=== PATIENT | female | born 1945 | race Caucasian/White ===

== ENCOUNTER 2017-09-19 09:46 | Emergency (ER) | payer MEDICARE ==
[2017-09-19 10:12] LABS: BASOPHIL % 0.7 % (0.0-0.4); Basophil (Absolute #) 0.05 (0-0.4); Eosinophil % 2.4 % (0.00-5.0); Eosinophil (Absolute #) 0.18 (0-0.5); Granulocyte Absolute (ANC) 4.64 (1.4-6.9); Granulocytes % 61.9 % (36.0-66.0); Hematocrit 39.7 % (35-47); Lymphocyte (Absolute #) 1.88 (1.0-4.6); Lymphocytes % 25.1 % (24.0-44.0); Mean Corpuscular Hemoglobin 28.8 pg (26-32); Mean Corpuscular Hgb Concent. 32.7 g/dl (32-36); Mean Platelet Volume 9.6 fl (6-9.5); Monocyte (Absolute #) 0.74 (0.0-1.3); Monocytes % 9.9 % (0.0-12.0); Platelet Count 299 K/mm3 (150-450); Red Blood Count 4.51 M/mm3 (4.1-5.4); Red Cell Distribution Width 14.2 % (11.5-14.0); White Blood Count 7.5 K/mm3 (4.0-10.5)
--- NOTE | 2017-09-19 10:12 | ERPHSYRPT ---
- History of Present Illness Time Seen by Provider: 09/19/17 09:50 Historian: patient Exam Limitations: no limitations Patient Subjective Stated Complaint: pt reports left sided chest pain beginning katarina [id number] this am-denies sob or diaphoresis-states that she thought it might be heart burn but that the pain was different-states that pain began radiaitng to left shoulder and back to chest-states that pain is better at this time Triage Nursing Assessment: pt pale warm and dry upon [id number] easy and nonlabored-no retractions noted-right radial pulse regular and strong Physician History: Pt started c/o mid sternal chest pain, "heartburn" lasting about 5 minutes at 7 AM today, radiating to her left chest. She denies other complaints, nausea, vomiting, cough, SOB, diaphoresis, radiating pain or other complaints. She took her regular Prilosec today, no other medicines for the pain, it has resolved, and did not return. She denies smoking, no history or medical problems, except stress, and GERD, her mother of a heart attack when she was 60 years old. Timing/Duration: hour(s) (3), resolved prior to arrival, sudden Activities at Onset: rest Quality: burning Location: substernal Severity of Pain-Max: severe Severity of Pain-Current: none Modifying Factors: Improves With: nothing Associated Symptoms: denies symptoms Prior Chest Pain/Cardiac Workup: no prior chest pain Nitro Today/Relief: no nitro taken today Aspirin Treatment Today: no aspirin today Allergies/Adverse Reactions: No Known Drug Allergies Allergy (Verified 09/19/17 09:58) Home Medications: Omeprazole [Prilosec] 20 mg PO DAILY 02/05/12 [History] Citalopram Hydrobromide [Celexa] 40 mg PO DAILY 09/19/17 [History] Hx Tetanus, Diphtheria Vaccination/Date Given: Yes Hx Influenza Vaccination/Date Given: No Hx Pneumococcal Vaccination/Date Given: No Immunizations Up to Date: Yes - Review of Systems Constitutional: No Symptoms Cardiac: Chest Pain All Other Systems: Reviewed and Negative - Past Medical History Pertinent Past Medical History: Yes Cardiac History: No Pertinent History Respiratory History: No Pertinent History GI Medical History: GERD Psycho-Social History: Anxiety - Past Surgical History Past Surgical History: Yes Gastrointestinal: Cholecystectomy Musculoskeletal: Orthopedic Surgery Female Surgical History: Other Other Surgical History: PARTIAL HYSTER - Social History Smoking Status: Never smoker Exposure to second hand smoke: No Drug Use: none Patient Lives Alone: No - Female History Hx Now: No - Nursing Vital Signs Nursing Vital Signs: Initial Vital Signs Temperature 98.4 F 09/19/17 09:56 Pulse Rate 80 09/19/17 09:56 Respiratory Rate 18 09/19/17 09:56 Blood Pressure 144/77 09/19/17 09:56 O2 Sat by Pulse Oximetry 96 09/19/17 09:56 Pain Scale Pain Intensity 0 - Physical Exam General Appearance: no apparent distress Eye Exam: eyes nml inspection Ears, Nose, Throat Exam: normal ENT inspection, pharynx normal Neck Exam: normal inspection, non-tender, supple Respiratory Exam: normal breath sounds, lungs clear, airway intact, No chest tenderness Cardiovascular Exam: regular rate/rhythm, normal heart sounds, normal peripheral pulses, No murmur Gastrointestinal/Abdomen Exam: soft, normal bowel sounds, No tenderness, No distention, No mass Back Exam: normal inspection, No CVA tenderness Extremity Exam: normal inspection, No calf tenderness, No to's sign, No pedal edema Neurologic Exam: alert, oriented x 3, normal mood/affect Skin Exam: normal color, warm, dry, No rash Lymphatic Exam: No adenopathy SpO2 Interpretation: normal SpO2: 96 Oxygen Delivery: Room Air - Course Nursing assessment & vital signs reviewed: Yes EKG Interpreted by Me: RATE (84/min), NORMAL AXIS, NORMAL INTERVALS, NORMAL ST-T , Other (repeat Ek:48 PM; unchanged) Ordered Tests: Active Orders 24 hr Category Date Time Status Vb Developer STAT Care 09/19/17 10:06 Active EKG-ER Only STAT Care 09/19/17 10:06 Active EKG-ER Only STAT Care 09/19/17 11:48 Active IV Insertion STAT Care 09/19/17 10:06 Active Oxygen-ED Only NASAL CANNULA 2 lpm Care 09/19/17 10:06 Active Pulse Oximetry (ED) STAT Care 09/19/17 10:06 Active CHEST 1 VIEW (PORTABLE) Stat Exams 09/19/17 10:06 Completed CBC W DIFF Stat Lab 09/19/17 10:00 Completed CK-Creatinine Phosphokinase Stat Lab 09/19/17 10:00 Completed CMP Stat Lab 09/19/17 10:00 Completed D-DIMER QUANTITATION Stat Lab 09/19/17 10:00 Completed NT PRO BNP Stat Lab 09/19/17 10:00 Completed TROPONIN Q3H Lab 09/19/17 10:00 Completed TROPONIN Q3H Lab 09/19/17 12:37 Completed TROPONIN Q3H Lab 09/19/17 16:15 Ordered TROPONIN Q3H Lab 09/19/17 19:15 Ordered TROPONIN Q3H Lab 09/19/17 22:15 Ordered Lab/Rad Data: Laboratory Result Diagrams 09/19/17 10:00 09/19/17 10:00 Laboratory Results 09/19/17 09/19/17 09/19/17 Range/Units 12:37 10:00 10:00 WBC (4.0-10.5) K/mm3 RBC (4.1-5.4) M/mm3 Hgb (12.0-16.0) gm/dl Hct (35-47) % MCV (78-100) fl MCH (26-32) pg MCHC (32-36) g/dl RDW (11.5-14.0) % Plt Count (150-450) K/mm3 MPV (6-9.5) fl Gran % (36.0-66.0) % Eos # (Auto) (0-0.5) Absolute Lymphs (auto) (1.0-4.6) Absolute Monos (auto) (0.0-1.3) Lymphocytes % (24.0-44.0) % Monocytes % (0.0-12.0) % Eosinophils % (0.00-5.0) % Basophils % (0.0-0.4) % Absolute Granulocytes (1.4-6.9) Basophils # (0-0.4) D-Dimer 365 (215-500) ng/mL Sodium (137-145) mmol/L Potassium (3.5-5.1) mmol/L Chloride (98-107) mmol/L Carbon Dioxide (22-30) mmol/L Anion Gap (5-15) MEQ/L BUN (7-17) mg/dL Creatinine (0.52-1.04) mg/dL Estimated GFR ML/MIN Glucose (74-106) mg/dL Calcium (8.4-10.2) mg/dL Total Bilirubin (0.2-1.3) mg/dL AST (14-36) U/L ALT (0-35) U/L Alkaline Phosphatase (38-126) U/L Creatine Kinase (30-135) U/L Troponin I < 0.012 < 0.012 (0.000-0.034) ng/mL NT-Pro-B Natriuret Pep (0-900) pg/mL Serum Total Protein (6.3-8.2) g/dL Albumin (3.5-5.0) g/dL 09/19/17 09/19/17 Range/Units 10:00 10:00 WBC 7.5 (4.0-10.5) K/mm3 RBC 4.51 (4.1-5.4) M/mm3 Hgb 13.0 (12.0-16.0) gm/dl Hct 39.7 (35-47) % MCV 88.0 (78-100) fl MCH 28.8 (26-32) pg MCHC 32.7 (32-36) g/dl RDW 14.2 H (11.5-14.0) % Plt Count 299 (150-450) K/mm3 MPV 9.6 H (6-9.5) fl Gran % 61.9 (36.0-66.0) % Eos # (Auto) 0.18 (0-0.5) Absolute Lymphs (auto) 1.88 (1.0-4.6) Absolute Monos (auto) 0.74 (0.0-1.3) Lymphocytes % 25.1 (24.0-44.0) % Monocytes % 9.9 (0.0-12.0) % Eosinophils % 2.4 (0.00-5.0) % Basophils % 0.7 (0.0-0.4) % Absolute Granulocytes 4.64 (1.4-6.9) Basophils # 0.05 (0-0.4) D-Dimer (215-500) ng/mL Sodium 143 (137-145) mmol/L Potassium 3.7 (3.5-5.1) mmol/L Chloride 108 H (98-107) mmol/L Carbon Dioxide 24 (22-30) mmol/L Anion Gap 14.6 (5-15) MEQ/L BUN 13 (7-17) mg/dL Creatinine 0.75 (0.52-1.04) mg/dL Estimated GFR > 60.0 ML/MIN Glucose 105 (74-106) mg/dL Calcium 9.1 (8.4-10.2) mg/dL Total Bilirubin 0.40 (0.2-1.3) mg/dL AST 25 (14-36) U/L ALT 23 (0-35) U/L Alkaline Phosphatase 69 (38-126) U/L Creatine Kinase 224 H (30-135) U/L Troponin I (0.000-0.034) ng/mL NT-Pro-B Natriuret Pep 183 (0-900) pg/mL Serum Total Protein 7.4 (6.3-8.2) g/dL Albumin 4.2 (3.5-5.0) g/dL - Progress Progress: improved Air Movement: good Progress Note: 09/19/17 14:03 Pt remains pain free, stable, denies any complaints, no nausea, dizziness, shortness of breath, other complaints. She wants to go home and follow up with her physician. Counseled pt/family regarding: lab results, diagnosis, need for follow-up, rad results - Departure Time of Disposition: 14:05 Departure Disposition: Home Clinical Impression: Chest pain Qualifiers: Chest pain type: unspecified Qualified Code(s): R07.9 - Chest pain, unspecified Condition: Stable Critical Care Time: No Referrals: EDOUARD MINA [Primary Care Provider] - Instructions: Atypical Chest Pain Additional Instructions: Follow up with your physician as scheduled next week, return if severe pain, shortness of breath, vomiting, dizziness!
[2017-09-19 10:27] LABS: ALBUMIN 4.2 g/dL (3.5-5.0); ALKALINE PHOSPHATASE 69 U/L (38-126); ANION GAP 14.6 MEQ/L (5-15); BLOOD UREA NITROGEN 13 mg/dL (7-17); CHLORIDE 108 mmol/L (98-107); CK-Creatinine Phosphokinase 224 U/L (30-135); Calcium 9.1 mg/dL (8.4-10.2); Carbon Dioxide 24 mmol/L (22-30); Creatinine 1 0.75 mg/dL (0.52-1.04); Glucose 105 mg/dL (74-106); Potassium 3.7 mmol/L (3.5-5.1); SGOT/AST 25 U/L (14-36); SGPT/ALT 23 U/L (0-35); SODIUM 143 mmol/L (137-145); Total Protein 7.4 g/dL (6.3-8.2)
--- NOTE | 2017-09-19 10:31 | XRAY ---
Indication: Chest pain. Comparison: February 05, 2012. Single PA chest less inflated today and remains clear. Heart and mediastinal structures within normal limits. Bony thorax intact again with minimal degenerative changes. Impression: Nonacute chest.
[2017-09-19 10:36] LABS: NT PRO BNP 183 pg/mL (0-900)
[2017-09-19 13:52] VITALS: BP 148/89; PULSE 72
[2017-09-19 14:07] VITALS: O2SAT 96
== END 2017-09-19 14:10 | disposition home or self-care (01) ==
LOC: ED 09:46
DX: R07.9 Chest pain, unspecified (principal); Z79.899 Other long term (current) drug therapy
CPT/HCPCS: 36000; 36415; 71045; 80053; 82550; 83880; 84484; 85025; 85379; 93005; 93041; 99284

== ENCOUNTER 2019-11-25 07:29 | Day surgery (SDC) | payer MEDICARE ==
[~2019-11-25 07:29] MED LIST: Ak-Dilate OPHTHALMIC*** 1.065 ML, Cyclogyl 1% OPHTH SOL 5 ML 1.065 ML, GATIFLOXACIN 0.5... OP ONE; Lactated Ringers 1,000 ML IV SCH; NON-FORMULARY ITEM IJ ONE; TETRACAINE 0.5% STERI-UNIT SOL OP ONE; cefUROXime sodium 0.005 GM in Sodium Chloride Flush 30 ML*** 0.5 ML IJ SCH
[2019-11-25] MEDS ORDERED: PROVAYBLUE IV ONE (07:30)
[2019-11-25] MEDS ORDERED: Lactated Ringers 1,000 ML IV ONE (07:36)
[2019-11-25] MEDS ORDERED: Zofran 4 MG/2 ML VIAL IV PRN (09:00)
[2019-11-25] MEDS ORDERED: ACETAZOLAMIDE 250 MG TABLET PO ONE (09:00)
[2019-11-25] MEDS: TETRACAINE 0.5% STERI-UNIT SOL OP ONE ×2 (09:41→10:16)
[2019-11-25] MEDS ORDERED: LIDOCAINE HCL 1% AMPUL 5 ML IJ ONE (10:00)
[2019-11-25] MEDS ORDERED: BETADINE 5% OPHTHALMIC 30 ML OP ONE (10:00)
[2019-11-25] MEDS ORDERED: Epinephrine Preservative Free 1 MG/ML IJ ONE (10:00)
[2019-11-25] MEDS ORDERED: DIPRIVAN 200 MG/20 ML IV ONE (10:40)
[2019-11-25 11:46] VITALS: BP 140/58; PULSE 77; O2SAT 99
--- NOTE | 2019-11-26 08:52 | OP ---
DATE/TIME OF OPERATION: 11/25/2019 1040 TIME DICTATED: 1256 PREOPERATIVE DIAGNOSIS: Senile cataract of right eye. POSTOPERATIVE DIAGNOSIS: Senile cataract of right eye. SURGEON: Christ Tong MD YOUTH CORRECTIONS OFFICER: None. OPERATION: Cataract extraction of right eye with an intraocular lens implant. STANDARD COMPLEX___X___ ANESTHESIA: MAC. ___X___ Monitored anesthesia care in combination with topical and intra-cameral anesthesia (because of the established specific risk of reflux, arrhythmias, or an anxiety attack associated with ocular manipulation as well as difficulty of the pc maintenance technician to manage such potentially catastrophic events while simultaneously attempting to complete the surgical procedure, it was deemed necessary for the patient's safety to have an anesthesiologist or a nurse stacking machine operator present during the procedure whenever possible. The anesthesiologist or the nurse stacking machine operator was utilized to monitor and regulate the intravenous sedation of the patient, so the patient was cooperative, relaxed, and comfortable). Topical anesthesia using Tetracaine eye drops together with intra cameral anesthesia using Lidocaine 1% MPF. The nurse was utilized to monitor the patient. ANESTHESIA PROVIDER: Chilo Nuno CRNA. COMPLICATIONS: None. BLOOD LOSS: None. INDICATIONS: The patient is undergoing cataract surgery in the hopes of eliminating the visual complaints and difficulty. PROCEDURE: After arriving at the facility's outpatient surgery area, an IV was started; the patient was given 5 mg of p.o. Versed. (If an anesthesia provider was not monitoring the patient) The patient was then given topical anesthetic Tetracaine eye drops. A cotton pellet was soaked into a solution of a combination of Zymaxid 0.5%, Anhtony-Synephrine 2.5% and Ocufen (other drops might have been substituted referenced in the patient's record). The pellet was inserted by the RN into the lower conjunctival cul-de-sac with a sterile forceps and left for 20 minutes. The pellet was then removed by the RN with a sterile forceps before taking the patient to the operating room. The preoperative area nurse identified the patient and marked the correct eye to be operated on. I identified the correct eye to be operated on and marked it appropriately in the outpatient surgery area. The patient was then taken into the operating room. Tetracaine eye drops were installed again in the correct eye. The eyelids and the lashes and the lid margins were scrubbed with Betadine solution. One drop of the diluted Betadine solution was placed in the conjunctival cul-de-sac for 45 seconds and then was irrigated. A drop of Tetracaine Gel was placed in the conjunctival cul-de-sac. The patient's forehead was taped to secure it during the procedure. The patient was monitored. The patient was then draped in the usual way for this procedure. An eye speculum was used to separate the eyelids. The eye was then fixated and a temporal 2.5 mm incision was made in the clear cornea temporally at the limbus. Through the incision, 0.25 cc of 1% non-preserved lidocaine was injected into the anterior chamber for intracameral anesthesia. The anterior chamber was then filled with viscoelastic. The pupil was small. I felt that it would be safer to mechanically dilate the pupil. A Malyugin ring was used at this point which dilated the pupil. That was removed at the end of the procedure prior to aspiration of the viscoelastic from the anterior chamber and posterior to the intraocular lens implant. __X__ The cataract had a great amount of cortical changes. That rendered seeing the anterior capsule difficult for a safe performance of an anterior capsulotomy. I injected an air bubble into the anterior chamber. I then injected 1 ML of vision blue solution into the anterior chamber. The vision blue solution was irrigated from the anterior chamber after 30 seconds. The anterior capsule was stained which facilitated performing the anterior capsulotomy safely. After that was completed, a cystotome was introduced into the anterior chamber and a round anterior capsulotomy was performed. The capsule was removed by a forceps. Hydrodissection was next carried utilizing a 25-gauge cannula and balanced salt solution to delineate the cortical material from the capsule and the nucleus from the cortical material. The nucleus was rotated freely into the capsular bag with no difficulty. The phaco tip of the [employer] Phacoemulsifier was introduced into the anterior chamber and two grooves were made into the nucleus 90 degrees apart. Using two spatulas resulted into the nucleus being fractured into four quadrants. The phaco tip was then used to remove each quadrant of the nucleus. Viscoelastic was used during this process to protect the corneal endothelium. Once the entire nucleus was removed, the phaco tip then was removed and the irrigation tip was introduced into the eye and the cortex was removed. The posterior capsule was polished. It was noticed that there was a tear into the posterior capsule with few vitreous strands into the pupil plan. An anterior vitrectomy was performed. A 20.00 diopter, [id number], posterior chamber lens implant, was inspected and found to be grossly normal. The implant was inserted into the implant injector cartridge; Viscoelastic again was introduced into the anterior chamber, which filled the capsular bag. The implant injector's cartridge tip was placed at the limbal wound and the posterior chamber implant was released into the capsular bag and rotated appropriately. The implant was found to be into the capsular bag and it was centered. ___X__ 0.2 ml of Tri-Moxi was introduced via 27 gauge cannula into the vitreous cavity through the ciliary processes. Viscoelastic was aspirated from the anterior chamber and posterior to the intraocular lens implant from the capsular bag using the irrigating tip. The anterior chamber was irrigated and filled with 5 cc antibiotic solution (500 cc of BSS plus 2 ml of Fortaz 100 mg/ml) ( if patient was not allergic to the medication). The lips of the corneal incision were hydrated using BSS solution. The anterior chamber was checked and found to be water tight. One drop each of antibiotic, steroid and NSAID drops (refer to chart for drops used) were placed in the conjunctival cul-de-sac of the operated eye. Patient tolerated the procedure quite well and left the operating room in satisfactory condition. DISCHARGE SUMMARY: The patient was released in stable condition. The patient and those with the patient were given an instruction sheet as of how to care for the eye after surgery as well as counseling on any abnormal laboratory studies by the postoperative RN. The patient was also given an appointment card for follow-up in the office and is to call immediately for any difficulties including but not limited to pain in the eye, decreased vision, discharge from the eye, headache and or fever. DISCHARGE DIAGNOSIS: Pseudophakia of right eye.
== END 2019-11-25 12:00 | disposition home or self-care (01) ==
LOC: SDC 07:29
PROVIDERS: ATTEND Ophthalmology
DX: H25.811 Combined forms of age-related cataract, right eye (principal)
CPT/HCPCS: 66982; 99100; C1780; J0171; J2704; A9270-GY; Q9968

== ENCOUNTER 2020-07-07 19:53 | Emergency (ER) | payer MEDICARE ==
[2020-07-07] MEDS ORDERED: BABY ASPIRIN 81 MG CHEW PO ONE (20:28)
[2020-07-07] MEDS ORDERED: NITRO-BID 2% UD PACKETS TOP ONE (20:28)
--- NOTE | 2020-07-07 20:39 | ERPHSYRPT ---
- History of Present Illness Time Seen by Provider: 07/07/20 20:15 Historian: patient, EMS Exam Limitations: no limitations Patient Subjective Stated Complaint: 2-3 weeks ago, and itching/hurting in the chest but it got better. No chest pain today and I took my b/p and it was 218/116, so called ambulance Triage Nursing Assessment: pt arrived via ambulance, with htn. B/p 218/116. Pt denies any chest pain but states, "I feel funny, I feel off". Pt denies headache. Lungs clear, heart tones reg. No edema noted. Pt states, "I'm under alot of stress with my daughter who is 33 and she tries to keep my grandson away from me". Physician History: 75 years old female with a history of GERD presented in the ER with chief complaint of intermittent chest pain for the last few weeks and also having elevated blood pressure. Patient does not take any antihypertensive. Patient report she is having dull aching chest pain off and on, last for a few minutes and improved. Currently patient does not have any chest pain. She checked her blood pressure and it was 212 systolic which was consistently high on repeated checking. Currently patient blood pressure is 205 systolic. She denies any blurry vision, diplopia, numbness tingling or focal weakness. No abdominal pain nausea or vomiting. Does not have any cardiac work-up done in the past. Timing/Duration: week(s), intermittent, gradual onset Activities at Onset: rest Quality: dullness, fullness Location: substernal Chest Pain Radiation: no radiation Severity of Pain-Max: moderate Severity of Pain-Current: mild Modifying Factors: Improves With: nothing Associated Symptoms: shortness of breath Prior Chest Pain/Cardiac Workup: no prior cardiac workup Nitro Today/Relief: no nitro taken today Aspirin Treatment Today: 81 mg x 1 Allergies/Adverse Reactions: No Known Drug Allergies Allergy (Verified 07/07/20 19:55) Home Medications: Omeprazole [Prilosec] 40 mg PO DAILY 02/05/12 [History] Citalopram Hydrobromide [Celexa] 40 mg PO DAILY 09/19/17 [History] Aspirin 81 mg PO DAILY 11/20/19 [History] Hx Tetanus, Diphtheria Vaccination/Date Given: Yes Hx Influenza Vaccination/Date Given: No Hx Pneumococcal Vaccination/Date Given: No Immunizations Up to Date: Yes Travel Risk - International Travel Have you traveled outside of the country in past 3 weeks: No - Coronavirus Screening Are you exhibiting any of the following symptoms?: No Close contact with a COVID-19 positive Pt in past 14-21 Days: No - Vaccine Status Have you recieved a Covid-19 vaccination: No - Review of Systems Constitutional: No Symptoms Eyes: No Symptoms Ears, Nose, & Throat: No Symptoms Respiratory: Dyspnea Cardiac: Chest Pain Abdominal/Gastrointestinal: No Symptoms Genitourinary Symptoms: No Symptoms Musculoskeletal: No Symptoms Skin: No Symptoms Neurological: No Focal Weakness, No Gait Changes, No Headache, No Sensory Changes, No Speech Changes Psychological: No Symptoms Endocrine: No Symptoms Hematologic/Lymphatic: No Symptoms Immunological/Allergic: No Symptoms - Past Medical History Pertinent Past Medical History: Yes Neurological History: No Pertinent History ENT History: Cataracts Cardiac History: No Pertinent History Respiratory History: No Pertinent History Endocrine Medical History: No Pertinent History Musculoskeletal History: No Pertinent History GI Medical History: GERD, Gallbladder Disease History: No Pertinent History Psycho-Social History: Anxiety, Depression Female Reproductive Disorders: No Pertinent History - Past Surgical History Past Surgical History: Yes Neuro Surgical History: No Pertinent History Cardiac: No Pertinent History Respiratory: No Pertinent History Gastrointestinal: Cholecystectomy Genitourinary: No Pertinent History Musculoskeletal: Orthopedic Surgery Female Surgical History: Other Other Surgical History: PARTIAL HYSTER, rt wrist - Social History Smoking Status: Never smoker Exposure to second hand smoke: No Drug Use: none Patient Lives Alone: No - Female History Hx Now: No - Nursing Vital Signs Nursing Vital Signs: Initial Vital Signs Temperature 98.3 F 07/07/20 19:54 Pulse Rate 85 07/07/20 19:54 Respiratory Rate 20 07/07/20 19:54 Blood Pressure 210/118 07/07/20 19:54 O2 Sat by Pulse Oximetry 97 07/07/20 19:54 Pain Scale Pain Intensity 0 - Physical Exam General Appearance: no apparent distress, alert, anxiety Eye Exam: PERRL/EOMI, eyes nml inspection Ears, Nose, Throat Exam: normal ENT inspection, TMs normal, pharynx normal Neck Exam: normal inspection, non-tender, supple, full range of motion Respiratory Exam: normal breath sounds, lungs clear Cardiovascular Exam: regular rate/rhythm, normal heart sounds Gastrointestinal/Abdomen Exam: soft, normal bowel sounds Back Exam: normal inspection, normal range of motion Extremity Exam: normal inspection, normal range of motion Neurologic Exam: alert, oriented x 3, cooperative, retort firer II-XII nml as tested, normal mood/affect, nml cerebellar function, sensation nml, No motor deficits Skin Exam: normal color SpO2 Interpretation: normal SpO2: 97 O2 Delivery: Room Air - Course EKG Interpreted by Me: RATE (75), Sinus Rhythm, NORMAL AXIS, NORMAL QRS Ordered Tests: Active Orders 24 hr Category Date Time Status [employer] STAT Care 07/07/20 20:28 Active EKG-ER Only STAT Care 07/07/20 20:28 Active IV Insertion STAT Care 07/07/20 20:28 Active CHEST 1 VIEW (PORTABLE) Stat Exams 07/07/20 20:13 Taken CBC W DIFF Stat Lab 07/07/20 20:40 Completed CMP Stat Lab 07/07/20 20:40 Completed D-DIMER QUANTITATIVE Stat Lab 07/07/20 20:40 Completed NT PRO BNP Stat Lab 07/07/20 20:40 Completed TROPONIN Q3H Lab 07/07/20 20:40 Completed TROPONIN Q3H Lab 07/07/20 23:30 Ordered TROPONIN Q3H Lab 07/08/20 02:30 Ordered TROPONIN Q3H Lab 07/08/20 05:30 Ordered TROPONIN Q3H Lab 07/08/20 08:30 Ordered Transfer Order Routine Transfer 07/07/20 Ordered Medication Summary Discontinued Medications Generic Name Dose Route Start Last Admin Trade Name Freq PRN Reason Stop Dose Admin Aspirin 324 mg 07/07/20 20:28 07/07/20 20:44 Baby Aspirin 81 Mg Chew PO 07/07/20 20:29 324 mg STAT ONE Administration Nitroglycerin 1 gm 07/07/20 20:28 07/07/20 20:44 Nitro-Bid 2% Ud Packets TOP 07/07/20 20:29 1 gm STAT ONE Administration Nitroglycerin Confirm 07/07/20 20:43 Nitro-Bid 2% Ud Packets Administered 07/07/20 20:44 Dose 1 gm .ROUTE .STK-MED ONE Lab/Rad Data: Laboratory Result Diagrams 07/07/20 20:40 07/07/20 20:40 Laboratory Results 07/07/20 07/07/20 07/07/20 Range/Units 20:40 20:40 20:40 WBC (4.0-10.5) K/mm3 RBC (4.1-5.4) M/mm3 Hgb (12.0-16.0) gm/dl Hct (35-47) % MCV (78-100) fl MCH (26-32) pg MCHC (32-36) g/dl RDW (11.5-14.0) % Plt Count (150-450) K/mm3 MPV (7.5-11.0) fl Gran % (36.0-66.0) % Eos # (Auto) (0-0.5) Absolute Lymphs (auto) (1.0-4.6) Absolute Monos (auto) (0.0-1.3) Lymphocytes % (24.0-44.0) % Monocytes % (0.0-12.0) % Eosinophils % (0.00-5.0) % Basophils % (0.0-0.4) % Absolute Granulocytes (1.4-6.9) Basophils # (0-0.4) D-Dimer 385 (215-500) ng/mL Sodium 138 (137-145) mmol/L Potassium 4.0 (3.5-5.1) mmol/L Chloride 101 (98-107) mmol/L Carbon Dioxide 28 (22-30) mmol/L Anion Gap 12.7 (5-15) MEQ/L BUN 12 (7-17) mg/dL Creatinine 1.04 (0.52-1.04) mg/dL Estimated GFR 55.1 ML/MIN Glucose 115 H (74-106) mg/dL Calcium 9.3 (8.4-10.2) mg/dL Total Bilirubin 0.20 (0.2-1.3) mg/dL AST 24 (14-36) U/L ALT 20 (0-35) U/L Alkaline Phosphatase 62 (38-126) U/L Troponin I < 0.012 (0.000-0.034) ng/mL NT-Pro-B Natriuret Pep 231 (0-900) pg/mL Serum Total Protein 7.7 (6.3-8.2) g/dL Albumin 4.5 (3.5-5.0) g/dL 07/07/ Range/Units 20:40 WBC 7.6 (4.0-10.5) K/mm3 RBC 4.61 (4.1-5.4) M/mm3 Hgb 12.8 (12.0-16.0) gm/dl Hct 40.3 (35-47) % MCV 87.4 (78-100) fl MCH 27.8 (26-32) pg MCHC 31.8 L (32-36) g/dl RDW 14.0 (11.5-14.0) % Plt Count 274 (150-450) K/mm3 MPV 9.1 (7.5-11.0) fl Gran % 56.9 (36.0-66.0) % Eos # (Auto) 0.15 (0-0.5) Absolute Lymphs (auto) 2.30 (1.0-4.6) Absolute Monos (auto) 0.77 (0.0-1.3) Lymphocytes % 30.3 (24.0-44.0) % Monocytes % 10.1 (0.0-12.0) % Eosinophils % 2.0 (0.00-5.0) % Basophils % 0.7 (0.0-0.4) % Absolute Granulocytes 4.32 (1.4-6.9) Basophils # 0.05 (0-0.4) D-Dimer (215-500) ng/mL Sodium (137-145) mmol/L Potassium (3.5-5.1) mmol/L Chloride (98-107) mmol/L Carbon Dioxide (22-30) mmol/L Anion Gap (5-15) MEQ/L BUN (7-17) mg/dL Creatinine (0.52-1.04) mg/dL Estimated GFR ML/MIN Glucose (74-106) mg/dL Calcium (8.4-10.2) mg/dL Total Bilirubin (0.2-1.3) mg/dL AST (14-36) U/L ALT (0-35) U/L Alkaline Phosphatase (38-126) U/L Troponin I (0.000-0.034) ng/mL NT-Pro-B Natriuret Pep (0-900) pg/mL Serum Total Protein (6.3-8.2) g/dL Albumin (3.5-5.0) g/dL - Progress Progress: improved Air Movement: good Progress Note: 07/07/20 22:18 75 years old is evaluated for intermittent chest pain and uncontrolled blood pressure. Patient has not been taking any blood pressure medications regularly. EKG showed normal sinus rhythm with no acute ST elevations. Negative initial troponin and D-dimer. She is given aspirin and Nitropaste, on reevaluation her pain and blood pressure both are improved and currently systolic is in 140s. Chest x-ray negative for any acute cardiopulmonary findings. Patient intermittent chest pain with elevated pressure and no previous cardiac work-up, patient needs to be observed with trending of cardiac enzyme and further work-up. Discussed with Dr. Carlos and patient is admitted. Blood Culture(s) Obtained: No Antibiotics given: No Discussed with .: Rubia Will see patient in: hospital (observation) Counseled pt/family regarding: lab results, diagnosis, rad results - Departure Departure Disposition: Observation Clinical Impression: Chest pain, rule out acute myocardial infarction, Uncontrolled hypertension Condition: Stable Critical Care Time: No Referrals: EDOUARD MINA [Primary Care Provider] -
[2020-07-07] MEDS ORDERED: NITRO-BID 2% UD PACKETS ONE (20:43)
[2020-07-07 20:47] LABS: Absolute Neutrophil Ct (ANC) 4.32 (1.4-6.9); BASOPHIL % 0.7 % (0.0-0.4); Basophil (Absolute #) 0.05 (0-0.4); Eosinophil (Absolute #) 0.15 (0-0.5); Hematocrit 40.3 % (35-47); Hemoglobin 12.8 gm/dl (12.0-16.0); Lymphocytes % 30.3 % (24.0-44.0); Mean Cell Volume 87.4 fl (78-100); Mean Corpuscular Hemoglobin 27.8 pg (26-32); Mean Corpuscular Hgb Concent. 31.8 g/dl (32-36); Mean Platelet Volume 9.1 fl (7.5-11.0); Monocyte (Absolute #) 0.77 (0.0-1.3); Monocytes % 10.1 % (0.0-12.0); Neutrophil % 56.9 % (36.0-66.0); Platelet Count 274 K/mm3 (150-450); Red Blood Count 4.61 M/mm3 (4.1-5.4); White Blood Count 7.6 K/mm3 (4.0-10.5)
[2020-07-07 21:10] LABS: ALBUMIN 4.5 g/dL (3.5-5.0); ANION GAP 12.7 MEQ/L (5-15); BILIRUBIN,TOTAL 0.2 mg/dL (0.2-1.3); Calcium 9.3 mg/dL (8.4-10.2); Creatinine 1 1.04 mg/dL (0.52-1.04); EST GLOMERULAR FILTRATION RATE 55.1 ML/MIN; Total Protein 7.7 g/dL (6.3-8.2)
[2020-07-07 23:25] LABS: INFLUENZA A NEGATIVE (NEGATIVE); INFLUENZA B NEGATIVE (NEGATIVE); RESPIRATORY SYNCTIAL VIRUS NEGATIVE (Negative)
[2020-07-08 00:10] VITALS: BP 149/80; PULSE 78; O2SAT 97
--- NOTE | 2020-07-08 08:44 | XRAY ---
Indication: Chest pain. Hypertension. Comparison: September 19, 2017. Portable chest demonstrates normal heart and lungs with incidental interval enlarging large hiatal hernia. Bony thorax intact.
== END 2020-07-08 00:25 | disposition left against medical advice (07) ==
LOC: ED 19:53
DX: R07.9 Chest pain, unspecified (principal); I10 Essential (primary) hypertension
CPT/HCPCS: 0241U; 36000; 36415; 71045; 80053; 83880; 84484; 85025; 85379; 93005; 93041; 99284; A9270-GY

== ENCOUNTER 2020-09-04 16:06 | Inpatient (IN) | payer MEDICARE ==
[2020-09-04] MEDS ORDERED: Sodium Chloride 0.9% 1000 ML 1,000 ML IV STA (16:30)
--- NOTE | 2020-09-04 16:34 | ERPHSYRPT ---
- History of Present Illness Time Seen by Provider: 09/04/20 16:32 Historian: patient, EMS Exam Limitations: no limitations Patient Subjective Stated Complaint: Pt states "My chest has hurt all day and I am nauseated and I have vomited." Triage Nursing Assessment: Pt presented alert and oriented X 3, skin pwd. PT able to speak in clear full sentences pt in no apparent respiratory distress. PT resting comfortably on the bed. Physician History: Pt states "My chest has hurt all day and I am nauseated and I have vomited." Patient is 75-year-old female with significant past medical history of hypertension gastroesophageal reflux disease started having a substernal chest pain and abdominal pain around 8:00 today morning associated with nausea and vomiting. So she came to the emergency room. Patient denies any fever chills. Patient has not got Covid vaccine yet. Timing/Duration: today Quality: burning Location: substernal Chest Pain Radiation: no radiation Severity of Pain-Max: mild Severity of Pain-Current: mild Associated Symptoms: nausea, vomiting, abdominal pain Prior Chest Pain/Cardiac Workup: no prior chest pain Nitro Today/Relief: no nitro taken today Aspirin Treatment Today: 81 mg x 1 Allergies/Adverse Reactions: No Known Drug Allergies Allergy (Verified 07/07/20 19:55) Home Medications: Omeprazole [Prilosec] 40 mg PO DAILY 02/05/12 [History] Citalopram Hydrobromide [Celexa] 40 mg PO DAILY 09/19/17 [History] Aspirin 81 mg PO DAILY 11/20/19 [History] Benazepril HCl [Lotensin] 20 mg PO DAILY 09/04/20 [History] Hx Tetanus, Diphtheria Vaccination/Date Given: Yes Hx Influenza Vaccination/Date Given: No Hx Pneumococcal Vaccination/Date Given: No Immunizations Up to Date: Yes Travel Risk - International Travel Have you traveled outside of the country in past 3 weeks: No - Coronavirus Screening Are you exhibiting any of the following symptoms?: No Close contact with a COVID-19 positive Pt in past 14-21 Days: No - Vaccine Status Have you recieved a Covid-19 vaccination: No - Review of Systems Constitutional: No Fever, No Chills Eyes: No Symptoms Ears, Nose, & Throat: No Symptoms Respiratory: No Cough, No Dyspnea Cardiac: Chest Pain, No Edema, No Syncope Abdominal/Gastrointestinal: Abdominal Pain, Nausea, Vomiting, No Diarrhea Genitourinary Symptoms: No Dysuria Musculoskeletal: No Back Pain, No Neck Pain Skin: No Rash Neurological: No Dizziness, No Focal Weakness, No Sensory Changes Psychological: No Symptoms Endocrine: No Symptoms All Other Systems: Reviewed and Negative - Past Medical History Pertinent Past Medical History: Yes Neurological History: No Pertinent History ENT History: Cataracts Cardiac History: No Pertinent History Respiratory History: No Pertinent History Endocrine Medical History: No Pertinent History Musculoskeletal History: No Pertinent History GI Medical History: GERD, Gallbladder Disease History: No Pertinent History Psycho-Social History: Anxiety, Depression Female Reproductive Disorders: No Pertinent History - Past Surgical History Past Surgical History: Yes Neuro Surgical History: No Pertinent History Cardiac: No Pertinent History Respiratory: No Pertinent History Gastrointestinal: Cholecystectomy Genitourinary: No Pertinent History Musculoskeletal: Orthopedic Surgery Female Surgical History: Other Other Surgical History: PARTIAL HYSTER, rt wrist - Social History Smoking Status: Never smoker Exposure to second hand smoke: No Drug Use: none Patient Lives Alone: No - Nursing Vital Signs Nursing Vital Signs: Initial Vital Signs Temperature 97.5 F 09/04/20 16:07 Pulse Rate 90 09/04/20 16:07 Respiratory Rate 20 09/04/20 16:07 Blood Pressure 103/61 09/04/20 16:07 O2 Sat by Pulse Oximetry 95 09/04/20 16:07 Pain Scale Pain Intensity 4 - Physical Exam General Appearance: no apparent distress, alert Eye Exam: PERRL/EOMI, eyes nml inspection Ears, Nose, Throat Exam: normal ENT inspection, moist mucous membranes Neck Exam: normal inspection, non-tender, supple, full range of motion Respiratory Exam: normal breath sounds, lungs clear, No respiratory distress Cardiovascular Exam: regular rate/rhythm, normal heart sounds Gastrointestinal/Abdomen Exam: soft, No tenderness, No mass Back Exam: normal inspection, No CVA tenderness, No vertebral tenderness Extremity Exam: normal inspection, normal range of motion Neurologic Exam: alert, oriented x 3, cooperative, normal mood/affect, sensation nml, No motor deficits Skin Exam: normal color, warm, dry SpO2: 95 - Course Nursing assessment & vital signs reviewed: Yes EKG Interpreted by Me: Sinus Rhythm - Radiology Exams Chest X-ray Interpretation: Reviewed by me, Negative, No Pneumonia - CT Exams Abdomen/Pelvis CT Interpretation: Tele-radiologist Report Ordered Tests: Active Orders 24 hr Category Date Time Status EKG-ER Only STAT Care 09/04/20 16:30 Active Oxygen-ED Only Nasal Cannula 2 lpm Care 09/04/20 16:30 Active ABDOMEN AND PELVIS W CONTRAST [CT] Stat Exams 09/04/20 18:10 Ordered ABDOMEN AND PELVIS W/0 CONTRAS [CT] Stat Exams 09/04/20 17:27 Ordered CHEST 1 VIEW (PORTABLE) Stat Exams 09/04/20 16:31 Taken AMYLASE Stat Lab 09/04/20 16:43 Completed CBC W DIFF Stat Lab 09/04/20 16:43 Completed CMP Stat Lab 09/04/20 16:43 Completed LIPASE Stat Lab 09/04/20 16:43 Completed TROPONIN Q3H Lab 09/04/20 16:43 Completed TROPONIN Q3H Lab 09/04/20 19:30 Ordered TROPONIN Q3H Lab 09/04/20 22:30 Ordered TROPONIN Q3H Lab 09/05/20 01:30 Ordered TROPONIN Q3H Lab 09/05/20 04:30 Ordered Medication Summary Discontinued Medications Generic Name Dose Route Start Last Admin Trade Name Ariesq PRN Reason Stop Dose Admin Famotidine 20 mg 09/04/20 17:21 09/04/20 17:29 Pepcid 20 Mg Vial IV 09/04/20 17:22 20 mg STAT ONE Administration Famotidine Confirm 09/04/20 17:25 Pepcid 20 Mg Vial Administered 09/04/20 17:26 Dose 20 mg IV .STK-MED ONE Sodium Chloride 1,000 mls @ 999 mls/hr 09/04/20 16:30 09/04/20 18:11 Sodium Chloride 0.9% 1000 Ml IV 09/04/20 17:30 Infused .Q1H1M STA Infusion Sodium Chloride Confirm 09/04/20 17:02 Sodium Chloride 0.9% 1000 Ml Administered 09/04/20 17:03 Dose 1,000 mls @ ud .ROUTE .STK-MED ONE Pantoprazole Sodium 40 mg 09/04/20 17:20 09/04/20 17:29 Protonix 40 Mg Iv IV 09/04/20 17:21 40 mg STAT ONE Administration Pantoprazole Sodium Confirm 09/04/20 17:26 Protonix 40 Mg Iv Administered 09/04/20 17:27 Dose 40 mg IV .STK-MED ONE Lab/Rad Data: Laboratory Result Diagrams 09/04/20 16:43 09/04/20 16:43 Laboratory Results 09/04/20 09/04/20 09/04/20 Range/Units 16:43 16:43 16:43 WBC 7.5 (4.0-10.5) K/mm3 RBC 4.39 (4.1-5.4) M/mm3 Hgb 12.2 (12.0-16.0) gm/dl Hct 39.3 (35-47) % MCV 89.5 (78-100) fl MCH 27.8 (26-32) pg MCHC 31.0 L (32-36) g/dl RDW 15.0 H (11.5-14.0) % Plt Count 230 (150-450) K/mm3 MPV 9.6 (7.5-11.0) fl Gran % 83.1 H (36.0-66.0) % Eos # (Auto) 0.04 (0-0.5) Absolute Lymphs (auto) 0.68 L (1.0-4.6) Absolute Monos (auto) 0.54 (0.0-1.3) Lymphocytes % 9.1 L (24.0-44.0) % Monocytes % 7.2 (0.0-12.0) % Eosinophils % 0.5 (0.00-5.0) % Basophils % 0.1 (0.0-0.4) % Absolute Granulocytes 6.19 (1.4-6.9) Basophils # 0.01 (0-0.4) Sodium 136 L (137-145) mmol/L Potassium 3.9 (3.5-5.1) mmol/L Chloride 106 (98-107) mmol/L Carbon Dioxide 27 (22-30) mmol/L Anion Gap 8.3 (5-15) MEQ/L BUN 11 (7-17) mg/dL Creatinine 0.88 (0.52-1.04) mg/dL Estimated GFR > 60.0 ML/MIN Glucose 145 H (74-106) mg/dL Calcium 8.5 (8.4-10.2) mg/dL Total Bilirubin 1.10 (0.2-1.3) mg/dL AST 679 H (14-36) U/L ALT 356 H (0-35) U/L Alkaline Phosphatase 117 (38-126) U/L Troponin I < 0.012 (0.000-0.034) ng/mL Serum Total Protein 6.9 (6.3-8.2) g/dL Albumin 4.0 (3.5-5.0) g/dL Amylase 2999 H (30-110) U/L Lipase 70711 H (23-300) U/L - Progress Progress: re-examined Air Movement: good Blood Culture(s) Obtained: No Antibiotics given: No Discussed with DrSamantha: Omega Will see patient in: hospital (observation) Counseled pt/family regarding: lab results, diagnosis, need for follow-up, rad results - Departure Departure Disposition: Observation Clinical Impression: Elevated alanine aminotransferase (ALT) level, Elevated SGOT (AST) Chest pain Qualifiers: Chest pain type: other chest pain Qualified Code(s): R07.89 - Other chest pain Acute pancreatitis Qualifiers: Pancreatitis type: idiopathic Acute pancreatitis complication: no infection or necrosis Qualified Code(s): K85.00 - Idiopathic acute pancreatitis without necrosis or infection Condition: Fair Critical Care Time: Yes Critical Care Time(excluding separately billable procedures): Critical 30-74 mins Referrals: EDOUARD MINA [Primary Care Provider] -
[2020-09-04 16:47] LABS: Absolute Neutrophil Ct (ANC) 6.19 (1.4-6.9); BASOPHIL % 0.1 % (0.0-0.4); Basophil (Absolute #) 0.01 (0-0.4); Eosinophil % 0.5 % (0.00-5.0); Eosinophil (Absolute #) 0.04 (0-0.5); Hematocrit 39.3 % (35-47); Hemoglobin 12.2 gm/dl (12.0-16.0); Lymphocyte (Absolute #) 0.68 (1.0-4.6); Lymphocytes % 9.1 % (24.0-44.0); Mean Cell Volume 89.5 fl (78-100); Mean Corpuscular Hemoglobin 27.8 pg (26-32); Mean Platelet Volume 9.6 fl (7.5-11.0); Monocyte (Absolute #) 0.54 (0.0-1.3); Monocytes % 7.2 % (0.0-12.0); Neutrophil % 83.1 % (36.0-66.0); Platelet Count 230 K/mm3 (150-450); Red Blood Count 4.39 M/mm3 (4.1-5.4); White Blood Count 7.5 K/mm3 (4.0-10.5)
[2020-09-04 17:00] LABS: ALKALINE PHOSPHATASE 117 U/L (38-126); ANION GAP 8.3 MEQ/L (5-15); BLOOD UREA NITROGEN 11 mg/dL (7-17); CHLORIDE 106 mmol/L (98-107); Calcium 8.5 mg/dL (8.4-10.2); Carbon Dioxide 27 mmol/L (22-30); Creatinine 1 0.88 mg/dL (0.52-1.04); EST GLOMERULAR FILTRATION RATE > 60.0 ML/MIN; Glucose 145 mg/dL (74-106); Potassium 3.9 mmol/L (3.5-5.1); SGOT/AST 679 U/L (14-36); SGPT/ALT 356 U/L (0-35); SODIUM 136 mmol/L (137-145); Total Protein 6.9 g/dL (6.3-8.2)
[2020-09-04] MEDS ORDERED: Sodium Chloride 0.9% 1000 ML 1,000 ML ONE (17:02)
[2020-09-04] MEDS ORDERED: PROTONIX 40 MG IV IV ONE ×2 (17:20→17:26)
[2020-09-04] MEDS ORDERED: Pepcid 20 MG VIAL IV ONE ×2 (17:21→17:25)
[2020-09-04 17:51] LABS: AMYLASE 2999 U/L (30-110); LIPASE 14163 U/L (23-300)
[2020-09-04 19:03] LABS: INFLUENZA A NEGATIVE (NEGATIVE); INFLUENZA B NEGATIVE (NEGATIVE); RESPIRATORY SYNCTIAL VIRUS NEGATIVE (Negative)
[2020-09-04] MEDS ORDERED: HUMALOG SQ PRN (20:03)
--- NOTE | 2020-09-04 21:08 | XRAY ---
Indication: Chest pain. Comparison: July 07, 2020. Portable chest again demonstrates normal heart and lungs with large hiatal hernia. Bony thorax intact. No new/acute findings.
--- NOTE | 2020-09-04 21:08 | XRAY ---
Indication: Abdomen pain, nausea, and vomiting. Pancreatitis. Multiple contiguous axial images obtained through the abdomen and pelvis prior to and following 80 cc Isovue 370 contrast as ordered. Comparison: February 05, 2012. Lung bases demonstrates minimal dependent atelectasis. No infiltrate or effusion. Enlarging large hiatal hernia with partial intrathoracic stomach. Heart not enlarged. Noncontrasted images are negative for pathologic visceral calcifications/calculi. Noncontrasted stomach and bowel loops appear nonobstructed. Normal appendix. Interval cholecystectomy. No free fluid/air. Postcontrast images demonstrates normal visceral enhancement and renal excretion. New 5 mm right renal cortical cyst. Stable 3.8 cm uterine fibroid. Remaining liver, pancreas, spleen, adrenal glands, kidneys, ureters, bladder, and uterus unremarkable. Mild scattered aortoiliac calcifications. No AAA or pathologic retroperitoneal lymphadenopathy. Osseous structures intact with mild multilevel degenerative spondylosis throughout the thoracolumbar spine. Stable bilateral L5 spondylolysis with very minimal 1 mm spondylolisthesis. Impression: 1. Negative pathologic visceral calcifications/calculi. 2. Interval enlarging large hiatal hernia with partial intrathoracic stomach. 3. New tiny right renal cyst. 4. Again incidental uterine fibroid and chronic bony findings. 5. Remaining CT abdomen/pelvis with and without contrast exam is negative. Comment: Preliminary interpretation was made by [facility]. No critical discrepancy.
[2020-09-04] MEDS ORDERED: Dextrose 5% -0.45 NaCl 1000 ML 1,000 ML IV ONE (21:19)
[2020-09-04] MEDS: Pepcid 20 MG VIAL IV SCH (21:30)
[2020-09-04] MEDS: D5W/0.45NS W/ 20mEq KCl 1000 ML 1,000 ML IV SCH (21:51)
[2020-09-05 05:48] LABS: BASOPHIL % 0.5 % (0.0-0.4); Basophil (Absolute #) 0.03 (0-0.4); Eosinophil % 2.9 % (0.00-5.0); Eosinophil (Absolute #) 0.18 (0-0.5); Hematocrit 36.5 % (35-47); Hemoglobin 11.2 gm/dl (12.0-16.0); Mean Cell Volume 89.9 fl (78-100); Mean Corpuscular Hemoglobin 27.6 pg (26-32); Mean Corpuscular Hgb Concent. 30.7 g/dl (32-36); Mean Platelet Volume 9.8 fl (7.5-11.0); Monocyte (Absolute #) 0.51 (0.0-1.3); Monocytes % 8.3 % (0.0-12.0); Neutrophil % 70.3 % (36.0-66.0); Platelet Count 224 K/mm3 (150-450); Red Blood Count 4.06 M/mm3 (4.1-5.4); Red Cell Distribution Width 14.9 % (11.5-14.0); White Blood Count 6.1 K/mm3 (4.0-10.5)
[2020-09-05 06:35] LABS: ALBUMIN 3.5 g/dL (3.5-5.0); ANION GAP 7.6 MEQ/L (5-15); BILIRUBIN,TOTAL 0.9 mg/dL (0.2-1.3); Calcium 8.1 mg/dL (8.4-10.2); Creatinine 1 0.99 mg/dL (0.52-1.04); EST GLOMERULAR FILTRATION RATE 58.3 ML/MIN; Potassium 4.1 mmol/L (3.5-5.1); Total Protein 6.3 g/dL (6.3-8.2)
[2020-09-05] MEDS: D5W/0.45NS W/ 20mEq KCl 1000 ML 1,000 ML IV SCH (06:54)
[2020-09-05] MEDS ORDERED: Sodium Chloride 0.9% 1000 ML 1,000 ML IV SCH (08:30)
[2020-09-05] MEDS: ceLEXa 20 MG PO SCH (09:08)
[2020-09-05] MEDS: Lotensin 10 MG PO SCH (09:08)
[2020-09-05] MEDS: ECOTRIN 81 MG PO SCH (09:08)
[2020-09-05] MEDS: PROTONIX 40 MG IV IV SCH (09:09)
[2020-09-05] MEDS: Pepcid 20 MG VIAL IV SCH ×2 (09:09→21:56)
[2020-09-05] MEDS: Zofran 4 MG/2 ML VIAL IV PRN ×2 (09:16→17:27)
[2020-09-05] MEDS: ROCEPHIN 1 Gm-D5w 50 ml Bag** 1 G/50 ML IVPB IV SCH (09:48)
[2020-09-05] MEDS ORDERED: NON-FORMULARY ITEM (Aspirin [Aspirin] 81 MG) PO SCH (10:00)
[2020-09-05] MEDS ORDERED: NON-FORMULARY ITEM (Citalopram Hydrobromide [Celexa] 40 MG) PO SCH (10:00)
[2020-09-05] MEDS ORDERED: NON-FORMULARY ITEM (Benazepril Hcl [Lotensin] 20 MG) PO SCH (10:00)
[2020-09-05] MEDS: MORPHINE SULFATE 4 MG INJ IV PRN ×2 (11:31→15:48)
--- NOTE | 2020-09-05 13:37 | PCM.HP ---
History of Present Illness - Chief Complaint Chief Complaint: CP R/O [place] History of Present Illness: is a 75 year old female with a Hx GERD and HTN presented to ER with c/o chest pain N/V. She states she fell recently while standing on a plastic chair trying to get a bee. C/O pain left side to under arm hurts since the fall. C/O N/V and epigastric pain that started the morning of admission.Denies fever or diarrhea or cough or GAVIN. - Review of Systems Constitutional: No Symptoms Eyes: No Symptoms Ears, Nose, & Throat: No Symptoms Respiratory: No Symptoms Cardiac: Chest Pain Abdominal/Gastrointestinal: Abdominal Pain, Nausea, Vomiting Genitourinary Symptoms: No Symptoms Musculoskeletal: Fall Skin: No Symptoms Neurological: No Symptoms Psychological: No Symptoms Endocrine: No Symptoms Hematologic/Lymphatic: No Symptoms Immunological/Allergic: No Symptoms Medications & Allergies Home Medications: Home Medication List Omeprazole [Prilosec] 40 mg PO DAILY 02/05/12 [History Confirmed 09/04/20] Citalopram Hydrobromide [Celexa] 40 mg PO DAILY 09/19/17 [History Confirmed 09/04/20] Aspirin 81 mg PO DAILY 11/20/19 [History Confirmed 09/04/20] Benazepril HCl [Lotensin] 20 mg PO DAILY 09/04/20 [History Confirmed 09/04/20] Allergies/Adverse Reactions: Allergies Allergy/AdvReac Type Severity Reaction Status Date / Time No Known Drug Allergies Allergy Verified 07/07/20 19:55 - Past Medical History Past Medical History: Yes Neurological History: No Pertinent History ENT History: Cataracts Cardiac History: No Pertinent History Respiratory History: No Pertinent History Endocrine Medical History: No Pertinent History Musculoskelatal History: No Pertinent History GI Medical History: GERD, Gallbladder Disease History: No Pertinent History Pyscho-Social History: Anxiety, Depression Reproductive Disorders: No Pertinent History - Female History Are you now?: No - Past Surgical History Past Surgical History: Yes Neuro Surgical History: No Pertinent History Cardiac History: No Pertinent History Respiratory Surgery: No Pertinent History GI Surgical History: Cholecystectomy Genitourinary Surgical Hx: No Pertinent History Musculskeletal Surgical Hx: Orthopedic Surgery Female Surgical History: Other Other Surgical History: PARTIAL HYSTER, rt wrist - Social History Smoking Status: Never smoker Exposure to second hand smoke: Yes Alcohol: None Drug Use: none - Physical Exam Vital Signs: Vital Signs - 24 hr Temp Pulse Pulse Resp BP Pulse Ox 09/05/20 11:41 98.2 F 76 16 174/77 95 09/05/20 08:00 16 09/05/20 07:30 97.9 F 78 16 184/81 96 09/05/20 03:51 97.9 F 94 H 17 163/74 95 09/04/20 23:51 98.4 F 63 12 09/04/20 20:30 97.8 F 94 H 17 148/72 97 09/04/20 20:03 97.8 F 94 H 17 148/72 97 09/04/20 19:09 97 H 17 146/79 94 L 09/04/20 18:17 95 09/04/20 18:14 87 18 129/70 94 L 09/04/20 16:07 97.5 F 92 H 90 20 103/61 95 General Appearance: mild distress (upper abdominal pain) Neurologic Exam: alert, oriented x 3, cooperative, normal mood/affect Eye Exam: eyes nml inspection Ears, Nose, Throat Exam: normal ENT inspection Neck Exam: normal inspection Respiratory Exam: normal breath sounds Cardiovascular Exam: regular rate/rhythm Gastrointestinal/Abdomen Exam: soft, normal bowel sounds, tenderness (across upper abd,no guarding) Skin Exam: normal color, warm, dry Results - Labs Lab/Micro Results: Lab Results-Last 24 Hours 09/04/20 09/04/20 09/04/20 Range/Units 16:43 16:43 16:43 WBC 7.5 (4.0-10.5) K/mm3 RBC 4.39 (4.1-5.4) M/mm3 Hgb 12.2 (12.0-16.0) gm/dl Hct 39.3 (35-47) % MCV 89.5 (78-100) fl MCH 27.8 (26-32) pg MCHC 31.0 L (32-36) g/dl RDW 15.0 H (11.5-14.0) % Plt Count 230 (150-450) K/mm3 MPV 9.6 (7.5-11.0) fl Gran % 83.1 H (36.0-66.0) % Eos # (Auto) 0.04 (0-0.5) Absolute Lymphs (auto) 0.68 L (1.0-4.6) Absolute Monos (auto) 0.54 (0.0-1.3) Lymphocytes % 9.1 L (24.0-44.0) % Monocytes % 7.2 (0.0-12.0) % Eosinophils % 0.5 (0.00-5.0) % Basophils % 0.1 (0.0-0.4) % Absolute Granulocytes 6.19 (1.4-6.9) Basophils # 0.01 (0-0.4) Sodium 136 L (137-145) mmol/L Potassium 3.9 (3.5-5.1) mmol/L Chloride 106 (98-107) mmol/L Carbon Dioxide 27 (22-30) mmol/L Anion Gap 8.3 (5-15) MEQ/L BUN 11 (7-17) mg/dL Creatinine 0.88 (0.52-1.04) mg/dL Estimated GFR > 60.0 ML/MIN Glucose 145 H (74-106) mg/dL POC Glucometer (74 to 106) mg/dL Hemoglobin A1c (4.5-6.0) % Calcium 8.5 (8.4-10.2) mg/dL Total Bilirubin 1.10 (0.2-1.3) mg/dL AST 679 H (14-36) U/L ALT 356 H (0-35) U/L Alkaline Phosphatase 117 (38-126) U/L Troponin I < 0.012 (0.000-0.034) ng/mL NT-Pro-B Natriuret Pep (0-900) pg/mL Serum Total Protein 6.9 (6.3-8.2) g/dL Albumin 4.0 (3.5-5.0) g/dL Amylase 2999 H (30-110) U/L Lipase 91101 H (23-300) U/L Influenza Type A Ag (NEGATIVE) Influenza Type B Ag (NEGATIVE) RSV (PCR) (Negative) SARS-CoV-2 (PCR) (NEGATIVE) 09/04/20 09/05/20 09/05/20 Range/Units 18:24 05:00 05:38 WBC 6.1 (4.0-10.5) K/mm3 RBC 4.06 L (4.1-5.4) M/mm3 Hgb 11.2 L (12.0-16.0) gm/dl Hct 36.5 (35-47) % MCV 89.9 (78-100) fl MCH 27.6 (26-32) pg MCHC 30.7 L (32-36) g/dl RDW 14.9 H (11.5-14.0) % Plt Count 224 (150-450) K/mm3 MPV 9.8 (7.5-11.0) fl Gran % 70.3 H (36.0-66.0) % Eos # (Auto) 0.18 (0-0.5) Absolute Lymphs (auto) 1.10 (1.0-4.6) Absolute Monos (auto) 0.51 (0.0-1.3) Lymphocytes % 18.0 L (24.0-44.0) % Monocytes % 8.3 (0.0-12.0) % Eosinophils % 2.9 (0.00-5.0) % Basophils % 0.5 (0.0-0.4) % Absolute Granulocytes 4.30 (1.4-6.9) Basophils # 0.03 (0-0.4) Sodium (137-145) mmol/L Potassium (3.5-5.1) mmol/L Chloride (98-107) mmol/L Carbon Dioxide (22-30) mmol/L Anion Gap (5-15) MEQ/L BUN (7-17) mg/dL Creatinine (0.52-1.04) mg/dL Estimated GFR ML/MIN Glucose (74-106) mg/dL POC Glucometer (74 to 106) mg/dL Hemoglobin A1c 5.59 (4.5-6.0) % Calcium (8.4-10.2) mg/dL Total Bilirubin (0.2-1.3) mg/dL AST (14-36) U/L ALT (0-35) U/L Alkaline Phosphatase (38-126) U/L Troponin I (0.000-0.034) ng/mL NT-Pro-B Natriuret Pep (0-900) pg/mL Serum Total Protein (6.3-8.2) g/dL Albumin (3.5-5.0) g/dL Amylase (30-110) U/L Lipase (23-300) U/L Influenza Type A Ag NEGATIVE (NEGATIVE) Influenza Type B Ag NEGATIVE (NEGATIVE) RSV (PCR) NEGATIVE (Negative) SARS-CoV-2 (PCR) NEGATIVE (NEGATIVE) 09/05/20 09/05/20 09/05/20 Range/Units 05:38 06:45 08:21 WBC (4.0-10.5) K/mm3 RBC (4.1-5.4) M/mm3 Hgb (12.0-16.0) gm/dl Hct (35-47) % MCV (78-100) fl MCH (26-32) pg MCHC (32-36) g/dl RDW (11.5-14.0) % Plt Count (150-450) K/mm3 MPV (7.5-11.0) fl Gran % (36.0-66.0) % Eos # (Auto) (0-0.5) Absolute Lymphs (auto) (1.0-4.6) Absolute Monos (auto) (0.0-1.3) Lymphocytes % (24.0-44.0) % Monocytes % (0.0-12.0) % Eosinophils % (0.00-5.0) % Basophils % (0.0-0.4) % Absolute Granulocytes (1.4-6.9) Basophils # (0-0.4) Sodium 137 (137-145) mmol/L Potassium 4.1 (3.5-5.1) mmol/L Chloride 107 (98-107) mmol/L Carbon Dioxide 27 (22-30) mmol/L Anion Gap 7.6 (5-15) MEQ/L BUN 11 (7-17) mg/dL Creatinine 0.99 (0.52-1.04) mg/dL Estimated GFR 58.3 ML/MIN Glucose 104 (74-106) mg/dL POC Glucometer 93 (74 to 106) mg/dL Hemoglobin A1c (4.5-6.0) % Calcium 8.1 L (8.4-10.2) mg/dL Total Bilirubin 0.90 (0.2-1.3) mg/dL AST 353 H (14-36) U/L ALT 321 H (0-35) U/L Alkaline Phosphatase 93 (38-126) U/L Troponin I (0.000-0.034) ng/mL NT-Pro-B Natriuret Pep 519 (0-900) pg/mL Serum Total Protein 6.3 (6.3-8.2) g/dL Albumin 3.5 (3.5-5.0) g/dL Amylase 1062 H (30-110) U/L Lipase 3563 H (23-300) U/L Influenza Type A Ag (NEGATIVE) Influenza Type B Ag (NEGATIVE) RSV (PCR) (Negative) SARS-CoV-2 (PCR) (NEGATIVE) 09/05/20 Range/Units 11:09 WBC (4.0-10.5) K/mm3 RBC (4.1-5.4) M/mm3 Hgb (12.0-16.0) gm/dl Hct (35-47) % MCV (78-100) fl MCH (26-32) pg MCHC (32-36) g/dl RDW (11.5-14.0) % Plt Count (150-450) K/mm3 MPV (7.5-11.0) fl Gran % (36.0-66.0) % Eos # (Auto) (0-0.5) Absolute Lymphs (auto) (1.0-4.6) Absolute Monos (auto) (0.0-1.3) Lymphocytes % (24.0-44.0) % Monocytes % (0.0-12.0) % Eosinophils % (0.00-5.0) % Basophils % (0.0-0.4) % Absolute Granulocytes (1.4-6.9) Basophils # (0-0.4) Sodium (137-145) mmol/L Potassium (3.5-5.1) mmol/L Chloride (98-107) mmol/L Carbon Dioxide (22-30) mmol/L Anion Gap (5-15) MEQ/L BUN (7-17) mg/dL Creatinine (0.52-1.04) mg/dL Estimated GFR ML/MIN Glucose (74-106) mg/dL POC Glucometer 78 (74 to 106) mg/dL Hemoglobin A1c (4.5-6.0) % Calcium (8.4-10.2) mg/dL Total Bilirubin (0.2-1.3) mg/dL AST (14-36) U/L ALT (0-35) U/L Alkaline Phosphatase (38-126) U/L Troponin I (0.000-0.034) ng/mL NT-Pro-B Natriuret Pep (0-900) pg/mL Serum Total Protein (6.3-8.2) g/dL Albumin (3.5-5.0) g/dL Amylase (30-110) U/L Lipase (23-300) U/L Influenza Type A Ag (NEGATIVE) Influenza Type B Ag (NEGATIVE) RSV (PCR) (Negative) SARS-CoV-2 (PCR) (NEGATIVE) Accuchecks Date 09/05/20 Date 09/05/20 Time 11:40 Time 07:29 - Radiology Impressions Radiology Exams & Impressions: Radiology Procedures Category Date Time Status ABDOMEN AND PELVIS W&WO CONTRA [CT] Stat Exams 09/04/20 17:27 Completed CHEST 1 VIEW (PORTABLE) Stat Exams 09/04/20 16:31 Completed Assessment/Plan (1) Acute pancreatitis Current Visit: Yes Status: Acute Qualifiers: Pancreatitis type: idiopathic Acute pancreatitis complication: no infection or necrosis Qualified Code(s): K85.00 - Idiopathic acute pancreatitis without necrosis or infection Assessment & Plan: new dg pancreatitis with elevated liver enzymes .S/P cholecystectomy- remote.Started on Rocephin in ER.EWnzyme levels have improved overnight on CLD. No more emesis. Code(s): K85.90 - ACUTE PANCREATITIS WITHOUT NECROSIS OR INFECTION, UNSP (2) Elevated liver enzymes Current Visit: Yes Status: Acute Assessment & Plan: Hepatitis panel pending. No ETOH Hx. Code(s): R74.8 - ABNORMAL LEVELS OF OTHER SERUM ENZYMES (3) Left-sided chest wall pain Current Visit: Yes Status: Acute Assessment & Plan: recent trauma-fell off a chair trying to get a bee. Xray left ribs. Code(s): R07.89 - OTHER CHEST PAIN
[2020-09-05] MEDS ORDERED: SENOKOT 8.6 MG PO PRN (16:01)
--- NOTE | 2020-09-05 18:43 | XRAY ---
Indication: Pain following fall 3 days ago. Comparison: None 2 view left ribs demonstrates mild osteopenia, mild multilevel thoracolumbar degenerative spondylosis, tiny left apical calcified granuloma, mild aortic calcifications, and multiple overlying monitoring leads. No other bony, articular, or soft tissue abnormalities.
[2020-09-05] MEDS: NORCO 5/325 MG PO PRN (21:56)
[2020-09-05] MEDS: Sodium Chloride 0.9% 1000 ML 1,000 ML IV SCH (21:58)
[2020-09-06 04:47] LABS: Absolute Neutrophil Ct (ANC) 3.65 (1.4-6.9); BASOPHIL % 0.4 % (0.0-0.4); Basophil (Absolute #) 0.02 (0-0.4); Eosinophil % 3.7 % (0.00-5.0); Eosinophil (Absolute #) 0.21 (0-0.5); Hematocrit 34.9 % (35-47); Hemoglobin 10.6 gm/dl (12.0-16.0); Lymphocyte (Absolute #) 1.24 (1.0-4.6); Mean Cell Volume 90.4 fl (78-100); Mean Corpuscular Hemoglobin 27.5 pg (26-32); Mean Corpuscular Hgb Concent. 30.4 g/dl (32-36); Mean Platelet Volume 10.2 fl (7.5-11.0); Monocyte (Absolute #) 0.52 (0.0-1.3); Monocytes % 9.2 % (0.0-12.0); Neutrophil % 64.7 % (36.0-66.0); Platelet Count 220 K/mm3 (150-450); Red Blood Count 3.86 M/mm3 (4.1-5.4); Red Cell Distribution Width 14.9 % (11.5-14.0); White Blood Count 5.6 K/mm3 (4.0-10.5)
[2020-09-06 05:05] LABS: ALBUMIN 3.6 g/dL (3.5-5.0); ALKALINE PHOSPHATASE 95 U/L (38-126); AMYLASE 364 U/L (30-110); ANION GAP 6.6 MEQ/L (5-15); BLOOD UREA NITROGEN 6 mg/dL (7-17); CHLORIDE 106 mmol/L (98-107); Calcium 8.3 mg/dL (8.4-10.2); Carbon Dioxide 29 mmol/L (22-30); Creatinine 1 0.83 mg/dL (0.52-1.04); EST GLOMERULAR FILTRATION RATE > 60.0 ML/MIN; Glucose 80 mg/dL (74-106); LIPASE 757 U/L (23-300); Potassium 3.6 mmol/L (3.5-5.1); SGOT/AST 177 U/L (14-36); SGPT/ALT 248 U/L (0-35); SODIUM 138 mmol/L (137-145); Total Protein 6.3 g/dL (6.3-8.2)
[2020-09-06] MEDS: Zofran 4 MG/2 ML VIAL IV PRN ×3 (06:31→17:42)
[2020-09-06] MEDS ORDERED: NORCO 5/325 MG ONE (06:36)
[2020-09-06] MEDS: NORCO 5/325 MG PO PRN (06:37)
[2020-09-06] MEDS: PROTONIX 40 MG IV IV SCH (09:13)
[2020-09-06] MEDS: Pepcid 20 MG VIAL IV SCH ×2 (09:13→22:37)
[2020-09-06] MEDS: ECOTRIN 81 MG PO SCH (09:13)
[2020-09-06] MEDS: ROCEPHIN 1 Gm-D5w 50 ml Bag** 1 G/50 ML IVPB IV SCH (09:13)
[2020-09-06] MEDS: ceLEXa 20 MG PO SCH (09:13)
[2020-09-06] MEDS: Lotensin 10 MG PO SCH (09:13)
--- NOTE | 2020-09-06 11:59 | PCM.NOTE ---
Date and Time: 09/06/20 1156 Subjective Assessment: Pt is feeling better right now since she had morphine - pain is 1-2/10. Before the morphine, pain was 10/10. Tolerating CLD. - Review of Systems Constitutional: No Fever Abdominal/Gastrointestinal: Abdominal Pain Objective Exam General Appearance: no apparent distress, alert Neurologic Exam: oriented x 3, cooperative Skin Exam: normal color, warm, dry, No rash Eye Exam: eyes nml inspection Ears, Nose, Throat Exam: moist mucous membranes Respiratory Exam: normal breath sounds, lungs clear, No crackles/rales, No rhonchi, No wheezing Cardiovascular Exam: regular rate/rhythm, normal heart sounds, No murmur Gastrointestinal/Abdomen Exam: soft, normal bowel sounds, No tenderness, No distention, No mass, No guarding, No rebound Extremity Exam: normal inspection, No pedal edema, No swelling Back Exam: normal inspection, No rash OBJECTIVE DATA Vital Signs: Vital Signs - 24 hr Temp Pulse Resp BP Pulse Ox 09/06/20 08:00 98.9 F 76 13 152/69 92 L 09/06/20 07:39 18 09/06/20 04:00 18 09/06/20 03:50 98.3 F 78 18 138/64 93 L 09/06/20 00:00 77 12 09/05/20 20:00 15 09/05/20 19:45 98.2 F 90 15 136/64 95 09/05/20 16:00 98.2 F 85 16 145/63 99 09/05/20 12:00 18 Pain Assessment - Last Documented Pain Intensity 8 Pain Scale Used 0-10 Pain Scale Intake and Output: Intake & Output 09/03/20 09/04/20 09/05/20 09/06/20 11:59 11:59 11:59 11:59 Intake Total 1362 2426 Output Total 2200 2800 Balance -838 -374 Weight 78.3 kg Lab Results: Lab Results-Last 24 Hours 09/05/20 09/06/20 09/06/20 Range/Units 15:55 04:20 04:20 WBC 5.6 (4.0-10.5) K/mm3 RBC 3.86 L (4.1-5.4) M/mm3 Hgb 10.6 L (12.0-16.0) gm/dl Hct 34.9 L (35-47) % MCV 90.4 (78-100) fl MCH 27.5 (26-32) pg MCHC 30.4 L (32-36) g/dl RDW 14.9 H (11.5-14.0) % Plt Count 220 (150-450) K/mm3 MPV 10.2 (7.5-11.0) fl Gran % 64.7 (36.0-66.0) % Eos # (Auto) 0.21 (0-0.5) Absolute Lymphs (auto) 1.24 (1.0-4.6) Absolute Monos (auto) 0.52 (0.0-1.3) Lymphocytes % 22.0 L (24.0-44.0) % Monocytes % 9.2 (0.0-12.0) % Eosinophils % 3.7 (0.00-5.0) % Basophils % 0.4 (0.0-0.4) % Absolute Granulocytes 3.65 (1.4-6.9) Basophils # 0.02 (0-0.4) Sodium 138 (137-145) mmol/L Potassium 3.6 (3.5-5.1) mmol/L Chloride 106 (98-107) mmol/L Carbon Dioxide 29 (22-30) mmol/L Anion Gap 6.6 (5-15) MEQ/L BUN 6 L (7-17) mg/dL Creatinine 0.83 (0.52-1.04) mg/dL Estimated GFR > 60.0 ML/MIN Glucose 80 (74-106) mg/dL POC Glucometer 87 (74 to 106) mg/dL Calcium 8.3 L (8.4-10.2) mg/dL Total Bilirubin 0.50 (0.2-1.3) mg/dL AST 177 H (14-36) U/L ALT 248 H (0-35) U/L Alkaline Phosphatase 95 (38-126) U/L Serum Total Protein 6.3 (6.3-8.2) g/dL Albumin 3.6 (3.5-5.0) g/dL Amylase 364 H (30-110) U/L Lipase 757 H (23-300) U/L Radiology Exams: Radiology Procedures Category Date Time Status ABDOMEN AND PELVIS W&WO CONTRA [CT] Stat Exams 09/04/20 17:27 Completed ABDOMINAL-LIMITED [US] Routine Exams 09/05/20 Ordered CHEST 1 VIEW (PORTABLE) Stat Exams 09/04/20 16:31 Completed RIBS UNILATERAL Routine Exams 09/05/20 16:40 Completed Assessment/Plan (1) Acute pancreatitis Current Visit: Yes Status: Acute Qualifiers: Pancreatitis type: idiopathic Acute pancreatitis complication: no infection or necrosis Qualified Code(s): K85.00 - Idiopathic acute pancreatitis without necrosis or infection Assessment & Plan: Much improved. Lipase is 757 (down from 14,163 on admission) and amylase down to 364 from 2999. On CLD; I told her tomorrow she will likely have her diet advanced and change from IV to po pain medicine. Discussed with pt that while her acute pancreatitis is much better, the cause is still unknown and will need to be worked up outpatient. Code(s): K85.90 - ACUTE PANCREATITIS WITHOUT NECROSIS OR INFECTION, UNSP (2) Elevated liver enzymes Current Visit: Yes Status: Acute Assessment & Plan: Much improved; AST down to 177 from initial of 679.l Code(s): R74.8 - ABNORMAL LEVELS OF OTHER SERUM ENZYMES (3) Left-sided chest wall pain Current Visit: Yes Status: Acute Assessment & Plan: no complaints about this this morning. Code(s): R07.89 - OTHER CHEST PAIN
[2020-09-06] MEDS: MORPHINE SULFATE 4 MG INJ IV PRN ×2 (12:34→20:39)
[2020-09-06] MEDS: ENOXAPARIN SODIUM SQ SCH (12:34)
[2020-09-06] MEDS: Sodium Chloride 0.9% 1000 ML 1,000 ML IV SCH (15:45)
[2020-09-07 05:28] LABS: BASOPHIL % 0.6 % (0.0-0.4); Basophil (Absolute #) 0.03 (0-0.4); Eosinophil % 2.8 % (0.00-5.0); Eosinophil (Absolute #) 0.15 (0-0.5); Hematocrit 38.6 % (35-47); Hemoglobin 11.9 gm/dl (12.0-16.0); Lymphocyte (Absolute #) 1.07 (1.0-4.6); Lymphocytes % 20.1 % (24.0-44.0); Mean Cell Volume 89.1 fl (78-100); Mean Corpuscular Hemoglobin 27.5 pg (26-32); Mean Corpuscular Hgb Concent. 30.8 g/dl (32-36); Monocyte (Absolute #) 0.48 (0.0-1.3); Neutrophil % 67.5 % (36.0-66.0); Platelet Count 249 K/mm3 (150-450); Red Blood Count 4.33 M/mm3 (4.1-5.4); Red Cell Distribution Width 14.9 % (11.5-14.0); White Blood Count 5.3 K/mm3 (4.0-10.5)
[2020-09-07 06:16] LABS: ALBUMIN 3.9 g/dL (3.5-5.0); ALKALINE PHOSPHATASE 103 U/L (38-126); AMYLASE 218 U/L (30-110); ANION GAP 9.8 MEQ/L (5-15); BLOOD UREA NITROGEN 6 mg/dL (7-17); CHLORIDE 104 mmol/L (98-107); Calcium 8.5 mg/dL (8.4-10.2); Carbon Dioxide 27 mmol/L (22-30); EST GLOMERULAR FILTRATION RATE > 60.0 ML/MIN; Glucose 71 mg/dL (74-106); LIPASE 410 U/L (23-300); Potassium 3.3 mmol/L (3.5-5.1); SGOT/AST 96 U/L (14-36); SGPT/ALT 189 U/L (0-35); SODIUM 138 mmol/L (137-145)
[2020-09-07] MEDS: MORPHINE SULFATE 4 MG INJ IV PRN ×2 (07:11→20:09)
[2020-09-07] MEDS: PROTONIX 40 MG IV IV SCH (07:16)
[2020-09-07] MEDS: Pepcid 20 MG VIAL IV SCH ×2 (07:17→21:53)
[2020-09-07] MEDS: Sodium Chloride 0.9% 1000 ML 1,000 ML IV SCH (07:39)
[2020-09-07] MEDS: Lotensin 10 MG PO SCH (09:20)
[2020-09-07] MEDS: ROCEPHIN 1 Gm-D5w 50 ml Bag** 1 G/50 ML IVPB IV SCH (09:20)
[2020-09-07] MEDS: ECOTRIN 81 MG PO SCH (09:21)
[2020-09-07] MEDS: ENOXAPARIN SODIUM SQ SCH (09:21)
[2020-09-07] MEDS: ceLEXa 20 MG PO SCH (09:21)
[2020-09-07] MEDS: Zofran 4 MG/2 ML VIAL IV PRN (09:24)
--- NOTE | 2020-09-07 10:32 | XRAY ---
Indication: Pancreatitis. Status post cholecystectomy. Two-dimensional right upper quadrant sonogram performed. Comparison: None Pancreas not well seen due to overlying bowel gas. Gallbladder surgically absent. Common bile duct measures 6.5 mm. No intrahepatic biliary distention. Remaining visualized liver and right kidney sonographically unremarkable. Right kidney measures 9.2 cm in length. Impression: Cholecystectomy. Nonvisualization pancreas. Remaining right upper quadrant sonogram negative.
--- NOTE | 2020-09-07 12:56 | XRAY ---
Indication: Abdomen pain and nausea. Cholecystectomy. Pancreatitis. Conventional MRCP performed. Comparison: None Gallbladder surgically absent. Common bile duct 9 mm, within normal limits for cholecystectomy. Distal common bile duct demonstrates 3-4 mm filling defect concerning for choledochal stone. Pancreatic duct measures 2-3 mm without filling defect. Incidental 7 mm left lower renal cyst. Visualized liver, pancreas, spleen, adrenal glands, kidneys, bowel loops, aorta, and IVC unremarkable. Incidental large hiatal hernia with partial intrathoracic stomach. No abnormal bone marrow signal. Impression: 1. Cholecystectomy with 3-4 mm distal choledochal stone. 2. Large hiatal hernia with partial intrathoracic stomach and small left renal cyst.
[2020-09-08] MEDS: Sodium Chloride 0.9% 1000 ML 1,000 ML IV SCH (03:06)
[2020-09-08] MEDS: NORCO 5/325 MG PO PRN (03:27)
[2020-09-08 05:50] LABS: Absolute Neutrophil Ct (ANC) 3.68 (1.4-6.9); BASOPHIL % 0.7 % (0.0-0.4); Basophil (Absolute #) 0.04 (0-0.4); Eosinophil (Absolute #) 0.17 (0-0.5); Hematocrit 36.7 % (35-47); Hemoglobin 11.5 gm/dl (12.0-16.0); Lymphocyte (Absolute #) 1.18 (1.0-4.6); Lymphocytes % 20.7 % (24.0-44.0); Mean Cell Volume 88.4 fl (78-100); Mean Corpuscular Hemoglobin 27.7 pg (26-32); Mean Corpuscular Hgb Concent. 31.3 g/dl (32-36); Monocyte (Absolute #) 0.62 (0.0-1.3); Monocytes % 10.9 % (0.0-12.0); Neutrophil % 64.7 % (36.0-66.0); Platelet Count 247 K/mm3 (150-450); Red Blood Count 4.15 M/mm3 (4.1-5.4); Red Cell Distribution Width 14.7 % (11.5-14.0); White Blood Count 5.7 K/mm3 (4.0-10.5)
[2020-09-08 06:07] LABS: ALBUMIN 3.7 g/dL (3.5-5.0); ALKALINE PHOSPHATASE 88 U/L (38-126); AMYLASE 131 U/L (30-110); ANION GAP 8.6 MEQ/L (5-15); BLOOD UREA NITROGEN 7 mg/dL (7-17); CHLORIDE 103 mmol/L (98-107); Calcium 8.4 mg/dL (8.4-10.2); Carbon Dioxide 29 mmol/L (22-30); Creatinine 1 0.69 mg/dL (0.52-1.04); EST GLOMERULAR FILTRATION RATE > 60.0 ML/MIN; Glucose 86 mg/dL (74-106); LIPASE 281 U/L (23-300); Potassium 3.5 mmol/L (3.5-5.1); SGOT/AST 56 U/L (14-36); SGPT/ALT 130 U/L (0-35); SODIUM 137 mmol/L (137-145); Total Protein 6.7 g/dL (6.3-8.2)
[2020-09-08 07:16] VITALS: BP 180/80; PULSE 81; O2SAT 96
--- NOTE | 2020-09-08 08:06 | DS ---
DISCHARGE DIAGNOSIS: ACUTE PANCREATITIS. HISTORY: The patient is a 75 year-old white female who presented to the emergency room with abdominal pain, nausea and vomiting. She was seen in the emergency room and found to have significantly elevated amylase and lipase. She was admitted to the hospital for gut rest, IV fluids and pain medication. HOSPITAL COURSE: The patient improved over the next several days each day with amylase and lipase normalizing to the point that it was normal by the morning of 09/08/2020. The patient had been somewhat hypertensive from her pain. At the present time she got to feeling better and her blood pressure was under much better control. She was able to eat a little bit on the evening of 09/07/2020. By 09/08/2020, she was able to take a low fat diet. The patient had MRCP performed which did show a stone in the bile duct. She has had a previous cholecystectomy. The suspicion was that she passed the stone earlier during the event. Her amylase when she came in was 2,999. Her lipase was 14,163. Her BUN and creatinine were normal. Her troponin was less than 0.012. Her white count was 7,500, hemoglobin 12.2, PLT count 230,000. The patient by the time of discharge was felt to be ready to continue her home medications and follow up with us in a week. We will get an appointment to see Dr. Noel in [facility] for possible ERCP to remove the remaining 3-4 mm stone in the common bile duct. It is in the distal segment and worrisome for passage as well and causing recurrent pancreatitis episode. The patient was instructed to come back immediately should she have any abdominal pain like she had previously and to call us if she has any problems in the meantime.
[2020-09-08] MEDS: ceLEXa 20 MG PO SCH (09:10)
[2020-09-08] MEDS: ECOTRIN 81 MG PO SCH (09:10)
[2020-09-08] MEDS: ENOXAPARIN SODIUM SQ SCH (09:11)
[2020-09-08] MEDS: Lotensin 10 MG PO SCH (09:30)
[2020-09-08] MEDS: Pepcid 20 MG VIAL IV SCH (09:31)
[2020-09-08] MEDS: PROTONIX 40 MG IV IV SCH (09:31)
[2020-09-08] MEDS: ROCEPHIN 1 Gm-D5w 50 ml Bag** 1 G/50 ML IVPB IV SCH (09:31)
== END 2020-09-08 09:20 | disposition home or self-care (01) | DRG 440 ==
LOC: ED 16:06 → MED SURG 19:59 → OBSVTOIN 19:59
PROVIDERS: ADMIT Family Medicine; ATTEND Family Medicine
DX: K85.90 Acute pancreatitis without necrosis or infection, unspecified (principal); K80.50 Calculus of bile duct without cholangitis or cholecystitis without obstruction; R11.2 Nausea with vomiting, unspecified; R10.9 Unspecified abdominal pain; I10 Essential (primary) hypertension; R74.8 Abnormal levels of other serum enzymes; R07.89 Other chest pain; Z20.828 Contact with and (suspected) exposure to other viral communicable diseases; Z79.899 Other long term (current) drug therapy
CPT/HCPCS: 0241U; 36415; 71045; 71100; 74178; 74181; 76705; 80053; 80074; 82150; 82947; 83036; 83690; 83880; 84484; 85025; 93005; 96360; 96374; 96375; 99284; 99291; J0696; J1650; J2270; J2405; A9270-GY

== ENCOUNTER 2021-06-13 22:01 | Observation (INO) | payer MEDICARE ==
[2021-06-13] MEDS ORDERED: Zofran 4 MG/2 ML VIAL IV ONE (22:14)
[2021-06-13] MEDS ORDERED: Sodium Chloride 0.9% 1000 ML 1,000 ML IV STA (22:14)
[2021-06-13] MEDS ORDERED: Pepcid 20 MG VIAL IV ONE ×2 (22:14→22:23)
[2021-06-13] MEDS ORDERED: Sodium Chloride 0.9% 1000 ML 1,000 ML ONE (22:23)
[2021-06-13] MEDS ORDERED: Zofran 4 MG/2 ML VIAL ONE (22:23)
[2021-06-13 22:40] LABS: Absolute Neutrophil Ct (ANC) 6.14 (1.4-6.9); Basophil (Absolute #) 0.01 (0-0.4); Eosinophil % 1.1 % (0.00-5.0); Eosinophil (Absolute #) 0.09 (0-0.5); Hematocrit 39.3 % (35-47); Hemoglobin 12.8 gm/dl (12.0-16.0); Lymphocyte (Absolute #) 1.01 (1.0-4.6); Lymphocytes % 12.6 % (24.0-44.0); Mean Cell Volume 91.6 fl (78-100); Mean Corpuscular Hemoglobin 29.8 pg (26-32); Mean Corpuscular Hgb Concent. 32.6 g/dl (32-36); Mean Platelet Volume 9.9 fl (7.5-11.0); Monocyte (Absolute #) 0.75 (0.0-1.3); Monocytes % 9.4 % (0.0-12.0); Neutrophil % 76.8 % (36.0-66.0); Platelet Count 235 K/mm3 (150-450); Red Blood Count 4.29 M/mm3 (4.1-5.4); Red Cell Distribution Width 13.1 % (11.5-14.0)
[2021-06-13 22:43] LABS: Appearance CLEAR (CLEAR); Bilirubin NEGATIVE (NEGATIVE); Blood SMALL Ery/ul (0-5); Glucose NEGATIVE (NEGATIVE); Ketones NEGATIVE (NEGATIVE); Leukocyte Esterase NEGATIVE (NEGATIVE); Mucus SLIGHT /HPF (NEGATIVE); Nitrite NEGATIVE (NEGATIVE); Protein,Urine Dip NEGATIVE (Negative); Specific Gravity 1.009 (1.005-1.025); Urobilinogen NEGATIVE mg/dL (0-1)
[2021-06-13 22:48] LABS: ALBUMIN 4.2 g/dL (3.5-5.0); ALKALINE PHOSPHATASE 117 U/L (38-126); ANION GAP 11.3 MEQ/L (5-15); BLOOD UREA NITROGEN 16 mg/dL (7-17); CHLORIDE 104 mmol/L (98-107); Carbon Dioxide 25 mmol/L (22-30); Creatinine 1 0.77 mg/dL (0.52-1.04); EST GLOMERULAR FILTRATION RATE > 60.0 ML/MIN; Glucose 136 mg/dL (74-106); Potassium 4.2 mmol/L (3.5-5.1); SGPT/ALT 404 U/L (0-35); SODIUM 137 mmol/L (137-145); Total Protein 7.2 g/dL (6.3-8.2)
[2021-06-13 23:20] LABS: LIPASE 9884 U/L (23-300); SGOT/AST 796 U/L (14-36)
[2021-06-13 23:28] LABS: INR 1.12 (0.8-3.0); PROTIME 13.2 SECONDS (9.4-12.5)
[2021-06-13] MEDS ORDERED: Zosyn INJ 4.5 GM in Sodium Chloride 100ML MINI-BAG PLUS 100 ML IV ONE (23:37)
[2021-06-13] MEDS ORDERED: Sodium Chloride 100ML MINI-BAG PLUS 100 ML IV ONE (23:43)
[2021-06-13] MEDS ORDERED: Zosyn INJ IV ONE (23:43)
--- NOTE | 2021-06-13 23:43 | ERPHSYRPT ---
- History of Present Illness Time Seen by Provider: 06/13/21 22:02 Historian: patient Exam Limitations: no limitations Patient Subjective Stated Complaint: pt states "I took one of my companions morphine pills on an accident. The bottle was right beside my bottles of medic ation." Triage Nursing Assessment: pt came into the er via wheelchair; pt is axo x4; c/o accidental medication administration; pt states "I took 1, 30 mg morphine pill at 0900."; c/o nausea; pt vomitted at time of assessment; clear lung sounds in all lobes; active bowel sounds in all lobes; hypertension Physician History: Patient here with vomiting after accidental ingestion of morphine. Patient has some mild epigastric pain. Actively vomiting as I walk into the room. Patient states that she accidentally took her roommates oral morphine pill. 30 mg. Approximately 9 AM. Patient has felt uncomfortable all day. Therefore, arrived to the emergency room tonight. Of note, patient does have a history of chronic pancreatitis. She states this is from a previous gallbladder issue. Her gallbladder has been surgically removed after reviewing previous ultrasounds in the EMR. She denies any falls, trauma, fever, chills. Timing/Duration: today Activities at Onset: none Quality: burning Abdominal Pain Onset Location: epigastric Pain Radiation: no radiation Severity of Pain-Max: mild Severity of Pain-Current: mild Modifying Factors: Improves With: analgesics Associated Symptoms: denies symptoms Previous symptoms: same symptoms as today Allergies/Adverse Reactions: No Known Drug Allergies Allergy (Verified 06/13/21 22:15) Home Medications: Omeprazole [Prilosec] 40 mg PO DAILY 02/05/12 [History] Citalopram Hydrobromide [Celexa] 40 mg PO DAILY 09/19/17 [History] Aspirin 81 mg PO DAILY 11/20/19 [History] Benazepril HCl [Lotensin] 20 mg PO DAILY 09/04/20 [History] Citalopram Hydrobromide [Celexa] 40 mg PO DAILY 06/13/21 [History] Simvastatin 10 mg [Zocor 10MG] 10 mg PO DAILY 06/13/21 [History] Hx Tetanus, Diphtheria Vaccination/Date Given: Yes Hx Influenza Vaccination/Date Given: No Hx Pneumococcal Vaccination/Date Given: No Travel Risk - International Travel Have you traveled outside of the country in past 3 weeks: No - Coronavirus Screening Are you exhibiting any of the following symptoms?: No Close contact with a COVID-19 positive Pt in past 14-21 Days: No - Vaccine Status Have you recieved a Covid-19 vaccination: Yes Senior Applications Engineer: Unknown - Vaccination Dates Date of 2cond Vaccination (if applicable): unknown Dates if Unknown: unknown - Review of Systems Constitutional: No Fever, No Chills Eyes: No Symptoms Ears, Nose, & Throat: No Symptoms Respiratory: No Cough, No Dyspnea Cardiac: No Chest Pain, No Edema, No Syncope Abdominal/Gastrointestinal: Abdominal Pain, Nausea, Vomiting, No Diarrhea Genitourinary Symptoms: No Dysuria Musculoskeletal: No Back Pain, No Neck Pain Skin: No Rash Neurological: No Dizziness, No Focal Weakness, No Sensory Changes Psychological: No Symptoms Endocrine: No Symptoms All Other Systems: Reviewed and Negative - Past Medical History Pertinent Past Medical History: Yes Neurological History: No Pertinent History ENT History: Cataracts Cardiac History: High Cholesterol, Hypertension Respiratory History: No Pertinent History Endocrine Medical History: No Pertinent History Musculoskeletal History: No Pertinent History GI Medical History: GERD, Gallbladder Disease History: No Pertinent History Psycho-Social History: Anxiety, Depression Female Reproductive Disorders: No Pertinent History - Past Surgical History Past Surgical History: Yes Neuro Surgical History: No Pertinent History Cardiac: No Pertinent History Respiratory: No Pertinent History Gastrointestinal: Cholecystectomy Genitourinary: No Pertinent History Musculoskeletal: Orthopedic Surgery Female Surgical History: Other Other Surgical History: PARTIAL HYSTER, rt wrist - Social History Smoking Status: Never smoker Exposure to second hand smoke: Yes Drug Use: none Patient Lives Alone: No - Nursing Vital Signs Nursing Vital Signs: Initial Vital Signs Temperature 97.7 F 06/13/21 22:30 Pulse Rate 79 06/13/21 22:30 Respiratory Rate 16 06/13/21 22:30 Blood Pressure 169/84 06/13/21 22:30 O2 Sat by Pulse Oximetry 95 06/13/21 22:30 Pain Scale Pain Intensity 0 - Physical Exam General Appearance: no apparent distress, alert Eye Exam: PERRL/EOMI, eyes nml inspection Ears, Nose, Throat Exam: normal ENT inspection, pharynx normal, moist mucous membranes Neck Exam: normal inspection, non-tender, supple, full range of motion Respiratory Exam: normal breath sounds, lungs clear, No respiratory distress Cardiovascular Exam: regular rate/rhythm, normal heart sounds Gastrointestinal/Abdomen Exam: soft, other (Patient actively vomiting in the room.), No tenderness, No mass Back Exam: normal inspection, normal range of motion, No CVA tenderness, No vertebral tenderness Extremity Exam: normal inspection, normal range of motion, pelvis stable Neurologic Exam: alert, oriented x 3, cooperative, normal mood/affect, nml cerebellar function, sensation nml, No motor deficits Skin Exam: normal color, warm, dry SpO2: 95 - Course Nursing assessment & vital signs reviewed: Yes EKG Interpreted by Me: Sinus Rhythm Ordered Tests: Active Orders 24 hr Category Date Time Status Clean Catch Urine Specimen STAT Care 06/13/21 23:33 Active Code Status Order ROUTINE Care 06/14/21 01:06 Active EKG-ER Only STAT Care 06/13/21 22:14 Active IV Care Q6H Care 06/14/21 01:06 Active IV Insertion STAT Care 06/13/21 22:[address] in Observation ROUTINE Care 06/14/21 01:06 Active NPO Diet 06/14/21 01:07 Active ABDOMEN AND PELVIS W CONTRAST [CT] Stat Exams 06/13/21 23:22 Taken CHEST 2 VIEWS (PA AND LAT) Stat Exams 06/13/21 22:19 Taken ACETAMINOPHEN Stat Lab 06/13/21 22:00 Completed Alcohol [ETHYL ALCOHOL] Stat Lab 06/13/21 23:34 Completed BMP AM.LAB Lab 06/14/21 04:00 Ordered CBC W DIFF Stat Lab 06/13/21 22:30 Completed CMP AM.LAB Lab 06/14/21 04:00 Ordered CMP Stat Lab 06/13/21 22:30 Completed LIPASE Stat Lab 06/13/21 22:30 Completed PT INR [PROTIME WITH INR] Stat Lab 06/13/21 22:00 Completed TROPONIN Q3H Lab 06/13/21 22:30 Completed TROPONIN Q3H Lab 06/14/21 01:30 Ordered TROPONIN Q3H Lab 06/14/21 04:30 Ordered TROPONIN Q3H Lab 06/14/21 07:30 Ordered TROPONIN Q3H Lab 06/14/21 10:30 Ordered UA W/RFX UR CULTURE Stat Lab 06/13/21 22:30 Completed Urine Triage Profile Stat Lab 06/13/21 23:34 Completed Pulse Oximetry CONTINUOUS RT 06/14/21 01:08 Active Medication Summary Discontinued Medications Generic Name Dose Route Start Last Admin Trade Name Freq PRN Reason Stop Dose Admin Famotidine 20 mg 06/13/21 22:14 06/13/21 22:25 Famotidine 20 Mg/1 Vial IV 06/13/21 22:15 20 mg STAT ONE Administration Famotidine Confirm 06/13/21 22:23 Famotidine 20 Mg/1 Vial Administered 06/13/21 22:24 Dose 20 mg IV .STK-MED ONE Sodium Chloride 1,000 mls @ 999 mls/hr 06/13/21 22:14 06/13/21 23:31 Sodium Chloride 0.9% 1000 Ml IV 06/13/21 23:14 Infused .Q1H1M STA Infusion Sodium Chloride Confirm 06/13/21 22:23 Sodium Chloride 0.9% 1000 Ml Administered 06/13/21 22:24 Dose 1,000 mls @ ud .ROUTE .STK-MED ONE Piperacillin Sod/Tazobactam 100 mls @ 200 mls/hr 06/13/21 23:37 06/13/21 23:56 Sod 4.5 gm/ Sodium Chloride IV 06/14/21 00:06 200 mls/hr STAT ONE Administration Sodium Chloride Confirm 06/13/21 23:43 Sodium Chloride 100ml Mini-Bag Plus Administered 06/13/21 23:44 Dose 100 mls @ ud IV .STK-MED ONE Ondansetron HCl 4 mg 06/13/21 22:14 06/13/21 22:25 Ondansetron Hcl 4 Mg/2 Ml Vial IV 06/13/21 22:15 4 mg STAT ONE Administration Ondansetron HCl Confirm 06/13/21 22:23 Ondansetron Hcl 4 Mg/2 Ml Vial Administered 06/13/21 22:24 Dose 4 mg .ROUTE .STK-MED ONE Piperacillin Sod/Tazobactam Sod Confirm 06/13/21 23:43 Piperacillin/Tazobactam Sodium 4.5 Gm Vial Administered 06/13/21 23:44 Dose 4.5 gm IV .STK-MED ONE Lab/Rad Data: Laboratory Result Diagrams 06/13/21 22:30 06/13/21 22:30 Laboratory Results 06/13/21 06/13/21 06/13/21 Range/Units 23:34 23:34 22:30 WBC (4.0-10.5) K/mm3 RBC (4.1-5.4) M/mm3 Hgb (12.0-16.0) gm/dl Hct (35-47) % MCV (78-100) fl MCH (26-32) pg MCHC (32-36) g/dl RDW (11.5-14.0) % Plt Count (150-450) K/mm3 MPV (7.5-11.0) fl Gran % (36.0-66.0) % Eos # (Auto) (0-0.5) Absolute Lymphs (auto) (1.0-4.6) Absolute Monos (auto) (0.0-1.3) Lymphocytes % (24.0-44.0) % Monocytes % (0.0-12.0) % Eosinophils % (0.00-5.0) % Basophils % (0.0-0.4) % Absolute Granulocytes (1.4-6.9) Basophils # (0-0.4) PT (9.4-12.5) SECONDS INR (0.8-3.0) Sodium (137-145) mmol/L Potassium (3.5-5.1) mmol/L Chloride (98-107) mmol/L Carbon Dioxide (22-30) mmol/L Anion Gap (5-15) MEQ/L BUN (7-17) mg/dL Creatinine (0.52-1.04) mg/dL Estimated GFR ML/MIN Glucose (74-106) mg/dL Calcium (8.4-10.2) mg/dL Total Bilirubin (0.2-1.3) mg/dL AST (14-36) U/L ALT (0-35) U/L Alkaline Phosphatase (38-126) U/L Troponin I < 0.012 (0.000-0.034) ng/mL Serum Total Protein (6.3-8.2) g/dL Albumin (3.5-5.0) g/dL Lipase (23-300) U/L Urine Color (YELLOW) Urine Appearance (CLEAR) Urine pH (5-6) Ur Specific [place] (1.005-1.025) Urine Protein (Negative) Urine Ketones (NEGATIVE) Urine Blood (0-5) Edwin/ul Urine Nitrite (NEGATIVE) Urine Bilirubin (NEGATIVE) Urine Urobilinogen (0-1) mg/dL Ur Leukocyte Esterase (NEGATIVE) Urine WBC (Auto) (0-5) /HPF Urine RBC (Auto) (0-2) /HPF U Epithel Cells (Auto) (FEW) /HPF Urine Bacteria (Auto) (NEGATIVE) /HPF Urine Mucus (Auto) (NEGATIVE) /HPF Urine Culture Reflexed (NO) Urine Glucose (NEGATIVE) mg/dL Urine Opiates Level POSITIVE (NEGATIVE) Ur Methadone NEGATIVE (NEGATIVE) Acetaminophen (10-30) ug/ml Urine Barbiturates NEGATIVE (NEGATIVE) Ur Phencyclidine (PCP) NEGATIVE (NEGATIVE) Urine Amphetamine NEGATIVE (NEGATIVE) U Benzodiazepine Level NEGATIVE (NEGATIVE) Urine Cocaine NEGATIVE (NEGATIVE) Urine Marijuana (THC) NEGATIVE (NEGATIVE) Ethyl Alcohol < 10 (0-10) mg/dL 06/13/21 06/13/21 06/13/21 Range/Units 22:30 22:30 22:30 WBC 8.0 (4.0-10.5) K/mm3 RBC 4.29 (4.1-5.4) M/mm3 Hgb 12.8 (12.0-16.0) gm/dl Hct 39.3 (35-47) % MCV 91.6 (78-100) fl MCH 29.8 (26-32) pg MCHC 32.6 (32-36) g/dl RDW 13.1 (11.5-14.0) % Plt Count 235 (150-450) K/mm3 MPV 9.9 (7.5-11.0) fl Gran % 76.8 H (36.0-66.0) % Eos # (Auto) 0.09 (0-0.5) Absolute Lymphs (auto) 1.01 (1.0-4.6) Absolute Monos (auto) 0.75 (0.0-1.3) Lymphocytes % 12.6 L (24.0-44.0) % Monocytes % 9.4 (0.0-12.0) % Eosinophils % 1.1 (0.00-5.0) % Basophils % 0.1 (0.0-0.4) % Absolute Granulocytes 6.14 (1.4-6.9) Basophils # 0.01 (0-0.4) PT (9.4-12.5) SECONDS INR (0.8-3.0) Sodium 137 (137-145) mmol/L Potassium 4.2 (3.5-5.1) mmol/L Chloride 104 (98-107) mmol/L Carbon Dioxide 25 (22-30) mmol/L Anion Gap 11.3 (5-15) MEQ/L BUN 16 (7-17) mg/dL Creatinine 0.77 (0.52-1.04) mg/dL Estimated GFR > 60.0 ML/MIN Glucose 136 H (74-106) mg/dL Calcium 9.0 (8.4-10.2) mg/dL Total Bilirubin 1.10 (0.2-1.3) mg/dL AST 796 H (14-36) U/L ALT 404 H (0-35) U/L Alkaline Phosphatase 117 (38-126) U/L Troponin I (0.000-0.034) ng/mL Serum Total Protein 7.2 (6.3-8.2) g/dL Albumin 4.2 (3.5-5.0) g/dL Lipase 9884 H (23-300) U/L Urine Color YELLOW (YELLOW) Urine Appearance CLEAR (CLEAR) Urine pH 5.0 (5-6) Ur Specific [place] 1.009 (1.005-1.025) Urine Protein NEGATIVE (Negative) Urine Ketones NEGATIVE (NEGATIVE) Urine Blood SMALL (0-5) Edwin/ul Urine Nitrite NEGATIVE (NEGATIVE) Urine Bilirubin NEGATIVE (NEGATIVE) Urine Urobilinogen NEGATIVE (0-1) mg/dL Ur Leukocyte Esterase NEGATIVE (NEGATIVE) Urine WBC (Auto) NONE (0-5) /HPF Urine RBC (Auto) 3-5 (0-2) /HPF U Epithel Cells (Auto) NONE (FEW) /HPF Urine Bacteria (Auto) NONE (NEGATIVE) /HPF Urine Mucus (Auto) SLIGHT (NEGATIVE) /HPF Urine Culture Reflexed NO (NO) Urine Glucose NEGATIVE (NEGATIVE) mg/dL Urine Opiates Level (NEGATIVE) Ur Methadone (NEGATIVE) Acetaminophen (10-30) ug/ml Urine Barbiturates (NEGATIVE) Ur Phencyclidine (PCP) (NEGATIVE) Urine Amphetamine (NEGATIVE) U Benzodiazepine Level (NEGATIVE) Urine Cocaine (NEGATIVE) Urine Marijuana (THC) (NEGATIVE) Ethyl Alcohol (0-10) mg/dL 06/13/21 06/13/21 Range/Units 22:00 22:00 WBC (4.0-10.5) K/mm3 RBC (4.1-5.4) M/mm3 Hgb (12.0-16.0) gm/dl Hct (35-47) % MCV (78-100) fl MCH (26-32) pg MCHC (32-36) g/dl RDW (11.5-14.0) % Plt Count (150-450) K/mm3 MPV (7.5-11.0) fl Gran % (36.0-66.0) % Eos # (Auto) (0-0.5) Absolute Lymphs (auto) (1.0-4.6) Absolute Monos (auto) (0.0-1.3) Lymphocytes % (24.0-44.0) % Monocytes % (0.0-12.0) % Eosinophils % (0.00-5.0) % Basophils % (0.0-0.4) % Absolute Granulocytes (1.4-6.9) Basophils # (0-0.4) PT 13.2 H (9.4-12.5) SECONDS INR 1.12 (0.8-3.0) Sodium (137-145) mmol/L Potassium (3.5-5.1) mmol/L Chloride (98-107) mmol/L Carbon Dioxide (22-30) mmol/L Anion Gap (5-15) MEQ/L BUN (7-17) mg/dL Creatinine (0.52-1.04) mg/dL Estimated GFR ML/MIN Glucose (74-106) mg/dL Calcium (8.4-10.2) mg/dL Total Bilirubin (0.2-1.3) mg/dL AST (14-36) U/L ALT (0-35) U/L Alkaline Phosphatase (38-126) U/L Troponin I (0.000-0.034) ng/mL Serum Total Protein (6.3-8.2) g/dL Albumin (3.5-5.0) g/dL Lipase (23-300) U/L Urine Color (YELLOW) Urine Appearance (CLEAR) Urine pH (5-6) Ur Specific [place] (1.005-1.025) Urine Protein (Negative) Urine Ketones (NEGATIVE) Urine Blood (0-5) Edwin/ul Urine Nitrite (NEGATIVE) Urine Bilirubin (NEGATIVE) Urine Urobilinogen (0-1) mg/dL Ur Leukocyte Esterase (NEGATIVE) Urine WBC (Auto) (0-5) /HPF Urine RBC (Auto) (0-2) /HPF U Epithel Cells (Auto) (FEW) /HPF Urine Bacteria (Auto) (NEGATIVE) /HPF Urine Mucus (Auto) (NEGATIVE) /HPF Urine Culture Reflexed (NO) Urine Glucose (NEGATIVE) mg/dL Urine Opiates Level (NEGATIVE) Ur Methadone (NEGATIVE) Acetaminophen < 10 L (10-30) ug/ml Urine Barbiturates (NEGATIVE) Ur Phencyclidine (PCP) (NEGATIVE) Urine Amphetamine (NEGATIVE) U Benzodiazepine Level (NEGATIVE) Urine Cocaine (NEGATIVE) Urine Marijuana (THC) (NEGATIVE) Ethyl Alcohol (0-10) mg/dL - Progress Progress: improved Progress Note: 06/13/21 23:44 differential diagnosis includes kidney stone, compression fracture, infection, UTI, triple AAA - basic labs including: CBC, lipase, CMP, UA, ekg, trop - insert IV for fluids, pain meds, nausea control - consider imaging: CT ab/pelvis Patient feels improved with medication. Labs demonstrate acute pancreatitis. This is happened in the past. Will obtain a CT scan looking for choledocholithiasis or other mechanical causes for acute pancreatitis. We will also start Zosyn given possibility of intra-abdominal infection. Although patient has no leukocytosis, fever, tachycardia at this point time. Therefore, lower on my differential diagnosis. 06/14/21 01:09 CT scans demonstrates no obvious cause for acute pancreatitis. Patient had pre vious cholecystectomy. Common bile duct is 9 mm. However, this is similar to a prior exam. Patient also has no abdominal pain at this point time. Therefore less likely be choledocholithiasis. Although could certainly progress to this if her labs continue to trend up. However, no common bile duct stone was seen on CT scan. Unfortunately we do not have the ability to obtain ultrasound overnight in the emergency department. I did discuss over the phone tonight with on-call physician, Dr. Bernard. He did accept the patient to his service. Plan for admission to the hospital. ED critical care statement As staff physician, I have provided critical care. Time: 45 mins Criteria for critical illness: Acute pancreatitis, elevated AST, ALT. Treatment and management provided include: Coordination of management with ETC care team, consultants, and inpatient care team. [id number] assessment of condition and response to therapy. Review and interpretation of emergent diagnostic testing. Medical chart review and completion. Direction and immediate supervision of the following therapy: Critical care was time spent personally by me on the following activities: blood draw for specimens, development of treatment plan with patient or surrogate, discussions with consultants, discussions with primary provider, interpretation of cardiac output measurements, evaluation of patient's response to treatment, examination of patient, obtaining history from patient or surrogate, ordering and performing treatments and interventions, ordering and review of laboratory studies, ordering and review of radiographic studies, pulse oximetry, re-evaluation of patient's condition and review of old charts. This time was independent of all procedures performed. Jude Yoo Discussed with : Marc Will see patient in: hospital (observation) Counseled pt/family regarding: lab results, diagnosis, rad results - Departure Departure Disposition: Observation Clinical Impression: Elevated alanine aminotransferase (ALT) level, Elevated SGOT (AST), Acute pancreatitis Condition: Stable Critical Care Time: Yes Critical Care Time(excluding separately billable procedures): Critical 30-74 mins Referrals: EDOUARD BERNARD [Primary Care Provider] - Follow up/PCP as directed
[2021-06-13 23:54] LABS: Amphetamine,Urine NEGATIVE (NEGATIVE); Barbiturate,Urine NEGATIVE (NEGATIVE); Benzodiazepine,Urine NEGATIVE (NEGATIVE); Cocaine,Urine NEGATIVE (NEGATIVE); Methadone,Urine NEGATIVE (NEGATIVE); Opiate,Urine POSITIVE (NEGATIVE); PCP,Urine NEGATIVE (NEGATIVE); THC,Urine NEGATIVE (NEGATIVE)
[2021-06-14] MEDS ORDERED: Hydromorphone 1 mg/ml Injection IV PRN (01:06)
[2021-06-14] MEDS ORDERED: Zofran 4 MG/2 ML VIAL IV PRN (01:06)
[2021-06-14] MEDS: Sodium Chloride 0.9% 1000 ML 1,000 ML IV SCH ×3 (01:13→21:07)
[2021-06-14 02:14] LABS: INFLUENZA A NEGATIVE (NEGATIVE); INFLUENZA B NEGATIVE (NEGATIVE); RESPIRATORY SYNCTIAL VIRUS NEGATIVE (Negative); SARS-CoV-2 Xpert Express NEGATIVE (NEGATIVE)
[2021-06-14 05:08] LABS: ALBUMIN 3.5 g/dL (3.5-5.0); ALKALINE PHOSPHATASE 87 U/L (38-126); BLOOD UREA NITROGEN 15 mg/dL (7-17); CHLORIDE 109 mmol/L (98-107); Calcium 8.1 mg/dL (8.4-10.2); Carbon Dioxide 27 mmol/L (22-30); Creatinine 1 0.75 mg/dL (0.52-1.04); EST GLOMERULAR FILTRATION RATE > 60.0 ML/MIN; Glucose 101 mg/dL (74-106); Potassium 3.9 mmol/L (3.5-5.1); SGOT/AST 447 U/L (14-36); SGPT/ALT 310 U/L (0-35); SODIUM 138 mmol/L (137-145); Total Protein 6.4 g/dL (6.3-8.2)
[2021-06-14 05:31] LABS: LIPASE 3390 U/L (23-300)
--- NOTE | 2021-06-14 08:49 | XRAY ---
Indication: Vomiting. Overdose. Comparison: September 04, 2020. PA/lateral chest again hyperinflated and clear. Heart not enlarged again with large hiatal hernia. Bony thorax intact again with mild osteopenia and degenerative changes. No new/acute findings.
--- NOTE | 2021-06-14 08:55 | XRAY ---
Indication: Abdomen pain, vomiting, and elevated lipase. Acute cholecystitis versus pancreatitis. Multiple contiguous axial images obtained through the abdomen and pelvis using 80 cc Isovue 370 contrast. Comparison: September 04, 2020. Lung bases again demonstrates minimal dependent atelectasis. Heart not enlarged. Grossly stable large hiatal hernia with partial intrathoracic stomach. Noncontrasted stomach and bowel loops remain nonobstructed with normal appendix. There is mild diffuse scattered colonic fecal debris throughout. Again previous cholecystectomy with prominent biliary tree. Common bile duct measures 9 mm in diameter. Stable 5 mm bilateral renal cortical cysts and 4 cm uterine fundal fibroid. Remaining liver, pancreas, spleen, adrenal glands, kidneys, ureters, bladder, and uterus appear unremarkable. Again mild scattered aortoiliac calcifications. No AAA or pathologic retroperitoneal lymphadenopathy. Osseous structures intact again with osteopenia, mild multilevel thoracolumbar degenerative spondylosis, and bilateral L5 spondylolysis with minimal grade 1 spondylolisthesis. Impression: 1. Mild diffuse fecal stasis without obstruction. 2. Again large hiatal hernia with partial intrathoracic stomach, cholecystectomy with prominent biliary tree, tiny bilateral renal cysts, 4 cm uterine fibroid, and chronic bony findings. 3. Remaining CT abdomen/pelvis with contrast exam is negative. Comment: Preliminary interpretation made by [facility]. No critical discrepancy.
[2021-06-14] MEDS: PROTONIX 40 MG IV IV SCH (09:42)
[2021-06-14] MEDS: ceLEXa 20 MG PO SCH (09:42)
[2021-06-14] MEDS: Lotensin 10 MG PO SCH (09:42)
[2021-06-14] MEDS: Pepcid 20 MG VIAL IV SCH ×2 (09:53→21:58)
[2021-06-14] MEDS ORDERED: NON-FORMULARY ITEM (Citalopram Hydrobromide [Celexa] 40 MG Tablet) PO SCH (10:00)
[2021-06-14] MEDS ORDERED: NON-FORMULARY ITEM (Benazepril Hcl [Lotensin] 20 MG Tablet) PO SCH (10:00)
[2021-06-15 05:09] LABS: Absolute Neutrophil Ct (ANC) 3.35 (1.4-6.9); Basophil (Absolute #) 0.04 (0-0.4); Hematocrit 36.7 % (35-47); Hemoglobin 11.7 gm/dl (12.0-16.0); Lymphocyte (Absolute #) 1.44 (1.0-4.6); Mean Cell Volume 93.4 fl (78-100); Mean Corpuscular Hemoglobin 29.8 pg (26-32); Mean Corpuscular Hgb Concent. 31.9 g/dl (32-36); Mean Platelet Volume 9.9 fl (7.5-11.0); Monocyte (Absolute #) 0.52 (0.0-1.3); Neutrophil % 58.3 % (36.0-66.0); Platelet Count 218 K/mm3 (150-450); Red Blood Count 3.93 M/mm3 (4.1-5.4); Red Cell Distribution Width 13.2 % (11.5-14.0); White Blood Count 5.8 K/mm3 (4.0-10.5)
[2021-06-15 06:13] LABS: ALBUMIN 3.9 g/dL (3.5-5.0); ALKALINE PHOSPHATASE 86 U/L (38-126); AMYLASE 348 U/L (30-110); ANION GAP 9.3 MEQ/L (5-15); BLOOD UREA NITROGEN 7 mg/dL (7-17); CHLORIDE 110 mmol/L (98-107); Calcium 8.2 mg/dL (8.4-10.2); Carbon Dioxide 26 mmol/L (22-30); Creatinine 1 0.62 mg/dL (0.52-1.04); EST GLOMERULAR FILTRATION RATE > 60.0 ML/MIN; Glucose 77 mg/dL (74-106); LIPASE 629 U/L (23-300); Potassium 3.6 mmol/L (3.5-5.1); SGOT/AST 158 U/L (14-36); SGPT/ALT 209 U/L (0-35); SODIUM 141 mmol/L (137-145); Total Protein 6.9 g/dL (6.3-8.2)
[2021-06-15] MEDS ORDERED: ZOFRAN ODT 4 MG PO PRN (08:27)
[2021-06-15] MEDS: ceLEXa 20 MG PO SCH (09:26)
[2021-06-15] MEDS: Pepcid 20 MG VIAL IV SCH ×2 (09:27→21:23)
[2021-06-15] MEDS: Lotensin 10 MG PO SCH (09:27)
[2021-06-15] MEDS: PROTONIX 40 MG IV IV SCH (09:27)
[2021-06-15] MEDS: Sodium Chloride 0.9% 1000 ML 1,000 ML IV SCH (23:52)
[2021-06-16 05:13] LABS: Absolute Neutrophil Ct (ANC) 3.15 (1.4-6.9); Basophil (Absolute #) 0.05 (0-0.4); Eosinophil % 5.2 % (0.00-5.0); Eosinophil (Absolute #) 0.29 (0-0.5); Hematocrit 35.7 % (35-47); Hemoglobin 11.7 gm/dl (12.0-16.0); Lymphocyte (Absolute #) 1.49 (1.0-4.6); Lymphocytes % 26.7 % (24.0-44.0); Mean Corpuscular Hemoglobin 30.2 pg (26-32); Mean Corpuscular Hgb Concent. 32.8 g/dl (32-36); Mean Platelet Volume 10.1 fl (7.5-11.0); Monocytes % 10.8 % (0.0-12.0); Neutrophil % 56.4 % (36.0-66.0); Platelet Count 218 K/mm3 (150-450); Red Blood Count 3.88 M/mm3 (4.1-5.4); White Blood Count 5.6 K/mm3 (4.0-10.5)
[2021-06-16 05:23] LABS: ALBUMIN 3.8 g/dL (3.5-5.0); ALKALINE PHOSPHATASE 83 U/L (38-126); ANION GAP 8.9 MEQ/L (5-15); BLOOD UREA NITROGEN 6 mg/dL (7-17); CHLORIDE 107 mmol/L (98-107); Calcium 8.5 mg/dL (8.4-10.2); Carbon Dioxide 26 mmol/L (22-30); Creatinine 1 0.64 mg/dL (0.52-1.04); EST GLOMERULAR FILTRATION RATE > 60.0 ML/MIN; Glucose 78 mg/dL (74-106); Potassium 3.6 mmol/L (3.5-5.1); SGOT/AST 70 U/L (14-36); SGPT/ALT 133 U/L (0-35); SODIUM 138 mmol/L (137-145); Total Protein 6.9 g/dL (6.3-8.2)
--- NOTE | 2021-06-16 07:41 | SSS ---
DISCHARGE DIAGNOSIS: ACUTE PANCREATITIS. HISTORY: The patient is a 76-year-old white female who presented to the emergency room after having problems with abdominal pain. The patient apparently also had taken a morphine tablet from one of her 's and was concerned that maybe the morphine caused her nausea and vomiting. She presented to the emergency room and was found to have a significant elevation in her lipase to approximately 9,000. She was admitted to the hospital for IV fluids and gut rest. PAST MEDICAL/SURGICAL HISTORY: Significant for hypertension, hyperlipidemia, gastroesophageal reflux disease, anxiety and depression. She had cholecystectomy previously, partial hysterectomy and right wrist surgeries. HOME MEDICATIONS: Omeprazole 40 mg a day, citalopram 40 mg a day, aspirin 81 mg a day, Lotensin 20 mg a day, simvastatin 10 mg a day. ALLERGIES: NKDA. PHYSICAL EXAMINATION: The patient's vital signs on admission showed temperature 97.7F, pulse 79, respiratory rate 16 and blood pressure 169/84. O2 saturation 95%. HEENT: Normocephalic, atraumatic. Pupils equal round reactive to light. Extraocular movements intact. Oropharynx is pink and moist. NECK: Supple without lymphadenopathy, thyromegaly or JVD. CHEST: Clear to auscultation. HEART: Regular rate and rhythm without significant murmurs, rubs or gallops heard. ABDOMEN: Soft, minimally tender. No palpable masses. EXTREMITIES: Without cyanosis, clubbing or edema. NEUROLOGIC: The patient is alert and oriented x3. LAB DATA AND TESTS: CT scan revealed mild diffuse fecal stasis, large hiatal hernia, cholecystectomy with prominent biliary tree, remaining CT abdomen and pelvis was negative. Chest x-ray was negative. She had 12-lead EKG which revealed essentially normal looking ECG tracing. The patient's laboratory studies initially showed her lipase to be at 9,000. Troponin less than 0.012. Her CBC was fairly normal. CMP showed some elevation of liver enzymes. Amylase, lipase, sugar, BUN, creatinine and electrolytes were essentially normal. HOSPITAL COURSE: The patient was placed in the medicine barr and placed on gut rest and IV fluids. PRN pain medication. The patient showed good improvement fairly quickly on her amylase and lipase being down to 348 and 629 respectively by 06/15/2021. The patient was allowed to have increase in fluids orally and increased to full liquid diet. Apparently despite the patient being strictly on a low fat diet she received ice cream twice on 06/15/2021. By 06/16/2021, the patient was smiling, sitting up in a chair and was obviously felt to be ready for discharge home again to continue on her usual home medications, follow up instructions to see me in the office in one week.
[2021-06-16 07:51] VITALS: BP 122/78; PULSE 76; O2SAT 97
== END 2021-06-16 08:45 | disposition home or self-care (01) ==
LOC: ED 22:01 → MED SURG 06-14 02:57
PROVIDERS: ADMIT Family Medicine; ATTEND Family Medicine
DX: K85.90 Acute pancreatitis without necrosis or infection, unspecified (principal); I10 Essential (primary) hypertension; E78.5 Hyperlipidemia, unspecified; K21.9 Gastro-esophageal reflux disease without esophagitis; Z79.899 Other long term (current) drug therapy; Z20.828 Contact with and (suspected) exposure to other viral communicable diseases; Z91.14 Patient's other noncompliance with medication regimen
CPT/HCPCS: 0241U; 36000; 36415; 71046; 74177; 80053; 80307; 81001; 82150; 83690; 84484; 85025; 85610; 93005; 96360; 96374; 96375; 99285; 99291; G0378; G0480; J2405; J2543; Q0162; A9270-GY

== ENCOUNTER 2022-05-27 17:48 | Emergency (ER) | payer MEDICARE ==
--- NOTE | 2022-05-27 18:12 | ERPHSYRPT ---
- History of Present Illness Time Seen by Provider: 05/27/22 18:10 Source: patient Exam Limitations: no limitations Patient Subjective Stated Complaint: pt here for a fall, she states she lose her balance and fell into a chair , now co pain from mid back to low back, no br uising to back Triage Nursing Assessment: pt alert, resp easy, face mask in place, skin w/d/p. moves all ext well Physician History: pt here for a fall, she states she lose her balance and fell into a chair , now co pain from mid back to low back, no bruising to back Occurred: just prior to arrival Reason for Fall: slipped Injuries/Pain Location: back, upper Loss of Consciousness: no loss of consciousness Quality: dullness Severity of Pain-Max: mild Severity of Pain-Current: mild Modifying Factors: Improves With: nothing Associated Symptoms (Fall): denies symptoms Allergies/Adverse Reactions: No Known Drug Allergies Allergy (Verified 05/27/22 18:05) Home Medications: Omeprazole [Prilosec] 40 mg PO DAILY 02/05/12 [History] Citalopram Hydrobromide [Celexa] 40 mg PO DAILY 09/19/17 [History] Aspirin 81 mg PO DAILY 11/20/19 [History] Benazepril HCl [Lotensin] 20 mg PO DAILY 09/04/20 [History] Simvastatin 10 mg [Zocor 10MG] 10 mg PO DAILY 06/13/21 [History] Hx Tetanus, Diphtheria Vaccination/Date Given: Yes Hx Influenza Vaccination/Date Given: No Hx Pneumococcal Vaccination/Date Given: No Immunizations Up to Date: Yes Travel Risk - International Travel Have you traveled outside of the country in past 3 weeks: No - Coronavirus Screening Are you exhibiting any of the following symptoms?: No Close contact with a COVID-19 positive Pt in past 14-21 Days: No - Vaccine Status Have you recieved a Covid-19 vaccination: No 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 - Vaccination Dates Date of 2cond Vaccination (if applicable): 2020 Dates if Unknown: unknown - Review of Systems Constitutional: No Symptoms Eyes: No Symptoms Ears, Nose, & Throat: No Symptoms Respiratory: No Symptoms Cardiac: No Symptoms Abdominal/Gastrointestinal: No Symptoms Genitourinary Symptoms: No Symptoms Musculoskeletal: Back Pain, Fall, Joint Pain Skin: No Symptoms Neurological: No Symptoms Psychological: No Symptoms - Past Medical History Pertinent Past Medical History: Yes Neurological History: No Pertinent History ENT History: Cataracts Cardiac History: High Cholesterol, Hypertension Respiratory History: No Pertinent History Endocrine Medical History: No Pertinent History Musculoskeletal History: No Pertinent History GI Medical History: GERD, Gallbladder Disease History: No Pertinent History Psycho-Social History: Anxiety, Depression Female Reproductive Disorders: No Pertinent History - Past Surgical History Past Surgical History: Yes Neuro Surgical History: No Pertinent History Cardiac: No Pertinent History Respiratory: No Pertinent History Gastrointestinal: Cholecystectomy Genitourinary: No Pertinent History Musculoskeletal: Orthopedic Surgery Female Surgical History: Other Other Surgical History: PARTIAL HYSTER, rt wrist - Social History Smoking Status: Never smoker Exposure to second hand smoke: Yes Drug Use: none Patient Lives Alone: Yes - Nursing Vital Signs Nursing Vital Signs: Initial Vital Signs Temperature 97.0 F 05/27/22 18:05 Pulse Rate 76 05/27/22 18:05 Respiratory Rate 18 05/27/22 18:05 Blood Pressure 151/80 05/27/22 18:05 O2 Sat by Pulse Oximetry 99 05/27/22 18:05 Pain Scale Pain Intensity 6 - Linda Coma Score Best Eye Response (Linda): (4) open spontaneously Best Verbal Response (Linda): (5) oriented Best Motor Response (Linda): (6) obeys commands [place] Total: 15 - Physical Exam General Appearance: no apparent distress, alert Head Injury: no evidence of injury Eye Exam: PERRL/EOMI ENT Exam: airway nml Neck Exam: normal inspection, No tenderness Respiratory/Chest Exam: normal breath sounds, No chest tenderness, No respirat ory distress Cardiovascular Exam: normal heart sounds, regular rate/rhythm Gastrointestinal Exam: soft, No tenderness, No distention, No guarding, No ecchymosis Back Exam: normal inspection, No vertebral tenderness Extremity Exam: normal inspection, normal range of motion, pelvis stable, No deformities Neurologic Exam: alert, oriented x 3, cooperative, sensation nml, No motor deficits Skin Exam: normal color, warm, dry SpO2 Interpretation: normal SpO2: 99 O2 Delivery: Room Air - Course Nursing assessment & vital signs reviewed: Yes - Radiology Exams Chest X-ray Interpretation: Reviewed by me, Negative, No Fracture Other X-ray Interpretation: Reviewed by me, Negative, No Fracture Ordered Tests: Active Orders 24 hr Category Date Time Status CHEST 1 VIEW (PORTABLE) Stat Exams 05/27/22 18:09 Taken RIBS UNILATERAL Stat Exams 05/27/22 18:09 Taken - Progress Progress: improved, pain not gone completely Counseled pt/family regarding: diagnosis, need for follow-up, rad results Medical Desision Making - Diagnostic Testing Radiological Interpretation: Reviewed by me - Departure Departure Disposition: Home Clinical Impression: Right-sided chest wall pain Fall Qualifiers: Encounter type: initial encounter Qualified Code(s): W19.XXXA - Unspecified fall, initial encounter Fracture of rib of right side Qualifiers: Encounter type: initial encounter Rib fracture type: multiple ribs Fracture type: closed Qualified Code(s): S22.41XA - Multiple fractures of ribs, right side, initial encounter for closed fracture Condition: Stable Critical Care Time: No Referrals: EDOUARD MINA [Primary Care Provider] - Follow up/PCP as directed Instructions: Contusion (DC), Preventing Falls in Older Adults, Rib Fracture or Bruised Rib ED Additional Instructions: Discharge/Care Plan CHRISTINE SEXTON was seen on 05/27/22 in the Emergency Room. The patient was counseled regarding Diagnosis,Lab results, Imaging studies, need for follow up and when to return to the Emergency Room. Prescriptions given: Discharge Note I have spoken with the patient and/or caregivers. I have explained the patient's condition, diagnosis and treatment plan based on the information available to me at this time. I have answered the patient's and/or caregiver's questions and addressed any concerns. The patient and/or caregivers have as good understanding of the patient's diagnosis, condition and treatment plan as can be expected at this point. The vital signs have been stable. The patient's condition is stable and appropriate for discharge from the emergency department. The patient will pursue further outpatient evaluation with the primary care physician or other designated or consulting physician as outlined in the discharge instructions. The patient and/or caregivers are agreeable to this plan of care and follow-up instructions have been explained in detail. The patient and/or caregivers have received these instruction. The patient/and or caregivers are aware that any significant change in condition or worsening of symptoms should prompt an immediate return to this or the closest emergency department or call 911. CHRISTINE SEXTON was seen on 05/27/22 n the Emergency Room. At that time you were treated for an emergent condition, during your visit Laboratory, Radiology and/or other procedures may have been ordered. It is very important that you follow-up with your Primary Care Physician EDOUARD MINA within the next 24-48 hours to review your Emergency Room visit and the final results of testing that was ordered. Some test results such as Urine Cultures, Blood Cultures, and other cultures if ordered will not be finalized for 24-48 hours. If you do not have a Primary Care Provider please call the medical records department at [phone] ext [phone] to obtain a copy of your results or you may sign into our patient portal to obtain these results by visiting us @ [email or web address] and completing the following steps: 1. Click on the Patient Portal link 2. Click the Patient Self Enrollment Link to complete the enrollment form and entering your 3. Once the enrollment form is completed you will receive an email with a temporary ID and password at the email address you provided. 4. Next choose a user name and password. Your user name must be at least 4 characters long and your password must be at least 4 characters long. 5. Choose a security question from the list and provide your answer to the question. If you already have signed into the Health Portal you may access your Health Care Information 30/10 by the following steps: 1. Login to our website @ [email or web address] 2. Enter your original user name and password. FAQS The [facility] Portal is an online tool that contains your Lab Results, Radiology Reports, Visit History, Discharge Instructions and Health Summary Lab and Radiology Results will not be available for 72 hours on the portal. The Portal is a secure site, passwords are encryted and URLs are re-written so they cannot be copied and pasted. You and authorized family members are the only ones who can access your Portal. Also there is a timeout feature that protects your information if you leave the Portal page open. If you have technical difficulty please use the Contact Us link on the page this will allow you to submit any questions you have regarding the Portal or you may contact the Medical Record Department at [phone] ext [phone].
[2022-05-27 18:48] VITALS: BP 160/73; PULSE 78
[2022-05-27 20:38] VITALS: O2SAT 99
--- NOTE | 2022-05-27 20:42 | XRAY ---
Indication: Right rib pain following fall. Comparison: June 13, 2021 Portable chest remains inflated and clear. Heart not enlarged again with large hiatal hernia. Bony thorax again demonstrates osteopenia and degenerative changes. Right ribs reported separately.
--- NOTE | 2022-05-27 20:42 | XRAY ---
Indication: Pain following fall. Comparison: None 2 view right ribs demonstrates nondisplaced posterior lateral 8-9 rib fractures without hemothorax/pneumothorax. Elsewhere osteopenia, minimal degenerative changes thoracic spine, and mild right acromioclavicular degenerative changes. Chest reported separately. Comment: Rib fractures not reported by interpreting ER clinician. Telephone report was given to Dr. Alcantara at 2036 hrs. on May 27, 2022.
== END 2022-05-27 18:48 | disposition home or self-care (01) ==
LOC: ED 17:48
DX: S22.41XA Multiple fractures of ribs, right side, initial encounter for closed fracture (principal); W01.190A Fall on same level from slipping, tripping and stumbling with subsequent striking against furniture, initial encounter; R07.89 Other chest pain; M54.50 Low back pain, unspecified; M54.6 Pain in thoracic spine; I10 Essential (primary) hypertension; E78.5 Hyperlipidemia, unspecified; Z79.899 Other long term (current) drug therapy
CPT/HCPCS: 71045; 71100; 99282

== ENCOUNTER 2022-06-04 00:54 | Emergency (ER) | payer MEDICARE ==
[2022-06-04 01:19] LABS: Appearance Clear (Clear); Bacteria Few /HPF (None Seen); Bilirubin Negative (Negative); Blood Trace (Negative); Epithelial Cells None Seen /HPF (None Seen); Glucose, Urine Negative (Negative); Hyaline Casts NONE SEEN /LPF (0-2); Ketones Trace (Negative); Leukocyte Esterase Moderate (Negative); Nitrite Negative (Negative); Protein,Urine Dip Trace (Negative); Specific Gravity >=1.030 (1.005-1.030); WBC >100 /HPF (0-5)
[2022-06-04 01:22] LABS: ADD URINE CULTURE? YES (NO)
--- NOTE | 2022-06-04 01:39 | ERPHSYRPT ---
- History of Present Illness Time Seen by Provider: 06/04/22 01:20 Source: patient Exam Limitations: no limitations Patient Subjective Stated Complaint: R lower abd pain that started yesterday Triage Nursing Assessment: pt ambulatory to bed by self, pt alert and oriented x3, pt c/o R lower intermittent abd pain that started yesterday, pt denies n/v/d or fever, pt also complaining of R lower back pain that has been hurting about a week d/t she had a fall, pt has hx of pancreatitis Physician History: This is a 77-year-old white female patient who had right flank pain and right abdominal pain since yesterday. She denies nausea vomiting. Patient does have a history of pancreatitis but this feels different. Her pain is not on the left side or left flank area. She denies chest pain. She denies shortness of aminta th. She has not had a fever at home. Patient has a history of GERD, hypertension and hyperlipidemia Timing/Duration: yesterday Activites at Onset: none Onset Location: right flank Pain Radiation: other (Right side abdomen) Severity of Pain-Max: mild Severity of Pain-Current: mild Sexual intercourse history: non-contributory Modifying Factors: Improves With: nothing Associated Symptoms: abdominal pain (Right side abdomen), lower back pain (Right flank), No fever, No chills, No nausea, No vomiting Allergies/Adverse Reactions: No Known Drug Allergies Allergy (Verified 06/04/22 01:17) Home Medications: Omeprazole [Prilosec] 40 mg PO DAILY 02/05/12 [History] Citalopram Hydrobromide [Celexa] 40 mg PO DAILY 09/19/17 [History] Aspirin 81 mg PO DAILY 11/20/19 [History] Benazepril HCl [Lotensin] 20 mg PO DAILY 09/04/20 [History] Simvastatin 10 mg [Zocor 10MG] 10 mg PO DAILY 06/13/21 [History] Hx Tetanus, Diphtheria Vaccination/Date Given: Yes Hx Influenza Vaccination/Date Given: No Hx Pneumococcal Vaccination/Date Given: No Travel Risk - International Travel Have you traveled outside of the country in past 3 weeks: No - Coronavirus Screening Are you exhibiting any of the following symptoms?: No Close contact with a COVID-19 positive Pt in past 14-21 Days: No - Vaccine Status Have you recieved a Covid-19 vaccination: No Skin Care Specialist: Moderna - Vaccination Dates Date of 2cond Vaccination (if applicable): 2020 Dates if Unknown: unknown - Review of Systems Constitutional: No Symptoms Eyes: No Symptoms Ears, Nose, & Throat: No Symptoms Respiratory: No Symptoms Cardiac: No Symptoms Abdominal/Gastrointestinal: Abdominal Pain (Right side), No Nausea, No Vomiting, No Diarrhea, No Constipation Genitourinary Symptoms: Flank Pain (Right flank pain) Musculoskeletal: No Symptoms Skin: No Symptoms Neurological: No Symptoms Psychological: No Symptoms Endocrine: No Symptoms Hematologic/Lymphatic: No Symptoms Immunological/Allergic: No Symptoms All Other Systems: Reviewed and Negative - Past Medical History Pertinent Past Medical History: Yes Neurological History: No Pertinent History ENT History: Cataracts Cardiac History: High Cholesterol, Hypertension Respiratory History: No Pertinent History Endocrine Medical History: No Pertinent History Musculoskeletal History: No Pertinent History GI Medical History: GERD, Gallbladder Disease, Pancreatitis History: No Pertinent History Psycho-Social History: Anxiety, Depression Female Reproductive Disorders: No Pertinent History - Past Surgical History Past Surgical History: Yes Neuro Surgical History: No Pertinent History Cardiac: No Pertinent History Respiratory: No Pertinent History Gastrointestinal: Cholecystectomy Genitourinary: No Pertinent History Musculoskeletal: Orthopedic Surgery Female Surgical History: Hysterectomy, Other Other Surgical History: PARTIAL HYSTER, rt wrist - Social History Smoking Status: Never smoker Exposure to second hand smoke: No Drug Use: none Patient Lives Alone: Yes - Nursing Vital Signs Nursing Vital Signs: Initial Vital Signs Temperature 98.2 F 06/04/22 01:04 Pulse Rate 85 06/04/22 01:04 Respiratory Rate 17 06/04/22 01:04 Blood Pressure 185/84 06/04/22 01:04 O2 Sat by Pulse Oximetry 99 06/04/22 01:04 Pain Scale Pain Intensity 10 - Physical Exam General Appearance: no apparent distress, alert, anxiety Eye Exam: PERRL/EOMI, eyes nml inspection Ears, Nose, Throat Exam: normal ENT inspection, moist mucous membranes Neck Exam: normal inspection, non-tender, supple, full range of motion Respiratory Exam: normal breath sounds, lungs clear, airway intact, No chest tenderness, No respiratory distress Cardiovascular Exam: regular rate/rhythm, normal heart sounds, normal peripheral pulses Gastrointestinal/Abdomen Exam: soft, normal bowel sounds, tenderness (Right side), No guarding, No rebound Pelvic Exam: not done Rectal Exam: not done Back Exam: normal inspection, normal range of motion, CVA tenderness, No vertebral tenderness (Right side) Extremity Exam: normal inspection, normal range of motion, pelvis stable Neurologic Exam: alert, oriented x 3, cooperative, preform plate maker II-XII nml as tested, normal mood/affect, nml cerebellar function, nml station & gait, sensation nml Skin Exam: normal color, warm, dry Lymphatic Exam: adenopathy SpO2 Interpretation: normal SpO2: 99 O2 Delivery: Room Air - Course Nursing assessment & vital signs reviewed: Yes Ordered Tests: Active Orders 24 hr Category Date Time Status CULTURE,URINE Stat Lab 06/04/22 01:03 Received UA W/RFX UR CULTURE Stat Lab 06/04/22 01:03 Completed Lab/Rad Data: Laboratory Results 06/04/22 Range/Units 01:03 Urine Color Yellow (Yellow) Urine Appearance Clear (Clear) Urine pH 6.0 (4.6-8.0) Ur Specific [place] >=1.030 A (1.005-1.030) Urine Protein Trace A (Negative) Urine Glucose (UA) Negative (Negative) mg/dL Urine Ketones Trace A (Negative) Urine Blood Trace (Negative) Urine Nitrite Negative (Negative) Urine Bilirubin Negative (Negative) Urine Urobilinogen 1.0 A (0.2) mg/dL Ur Leukocyte Esterase Moderate A (Negative) U Hyaline Cast (Auto) NONE SEEN (0-2) /LPF Urine Microscopic RBC 6-10 A (0-5) /HPF Urine Microscopic WBC >100 A (0-5) /HPF Ur Epithelial Cells None Seen (None Seen) /HPF Urine Bacteria Few A (None Seen) /HPF Urine Culture Reflexed YES (NO) - Progress Progress: unchanged Air Movement: good Progress Note: 06/04/22 01:36 This patient's medical issue is of low complexity. This is based on the patient's history of present illness, findings on physical examination. Since the patient's pain is in the right flank and radiates into the right side of her abdomen and she does not have an acute surgical abdomen, we opted to start with a urinalysis which showed at least a moderate urinary tract infection. The pain pattern is different than her usual pancreatitis pain and she does not have left flank or left side abdominal pain. She has not been vomiting and does not have diarrhea or fever. Therefore we will treat her with antibiotics here in the emergency department today. She does not want an injection of antibiotics but wants an oral antibiotic. We will give her Levaquin p.o. 500 mg. Discharge plan is discussed with the patient we will have her drink plenty fluids and continue cefdinir 300 mg orally twice a day for 7 days. She is to follow-up with her primary care physician for further evaluation management. She is use Tylenol ibuprofen for pain control if there are no contraindications. 06/04/22 01:41 Blood Culture(s) Obtained: No Antibiotics given: Yes Counseled pt/family regarding: lab results, diagnosis, need for follow-up Medical Desision Making - Discussion of managment Reviewed:: Test results Agreed on:: Treatment plan - Diagnostic Testing Diagnostic test were ordered, analyzed, and reviewed by me: Yes - Risk of complications Minimal Risk: Minimal risk of morbidity - Departure Departure Disposition: Home Clinical Impression: UTI (urinary tract infection) Condition: Stable Critical Care Time: No Referrals: EDOUARD MINA [Primary Care Provider] - Follow up/PCP as directed Additional Instructions: Drink plenty of fluids. Take your antibiotics as prescribed. Use Tylenol and ibuprofen for pain control if there are no contraindications. Follow-up with your primary care provider for further evaluation and management. Prescriptions: Cefdinir 300 mg PO BID #14 cap
[2022-06-04] MEDS ORDERED: Levofloxacin 500 MG Tablet PO ONE (01:41)
[2022-06-04] MEDS ORDERED: Levofloxacin 500 MG Tablet ONE (01:48)
[2022-06-04 02:02] VITALS: BP 164/62; PULSE 82; O2SAT 100
== END 2022-06-04 01:55 | disposition home or self-care (01) ==
LOC: ED 00:54
DX: N39.0 Urinary tract infection, site not specified (principal); R10.9 Unspecified abdominal pain; I10 Essential (primary) hypertension; E78.5 Hyperlipidemia, unspecified; Z79.899 Other long term (current) drug therapy
CPT/HCPCS: 81001; 87086; 99282; A9270-GY